=== PATIENT | female | born 1990 | race Hispanic/Latino ===

== ENCOUNTER 2017-10-16 15:45 | Emergency (ER) | payer SELFPAY ==
[2017-10-16] MEDS ORDERED: LIDOCAINE 1% W/EPI 1:100,000 MDV 50 ML VIAL ONE (17:14)
[2017-10-16] MEDS ORDERED: HYDROCODONE/APAP 10/325 TAB ONE (17:14)
--- NOTE | 2017-10-16 17:38 | RAD REPORT ---
EXAM DESCRIPTION: RAD - Tib Fib Left - 10/16/2017 5:11 pm CLINICAL HISTORY: Dog bite, soft tissue wound COMPARISON: None. FINDINGS: No fracture is identified. There is no dislocation or periosteal reaction noted. No acute or suspicious bony finding. No foreign body. Abnormal air densities are present in the soft tissues primarily along the lateral a spect of the calf. IMPRESSION: Soft tissue infection changes evident lateral left leg. No bony abnormality.
[2017-10-16] MEDS ORDERED: TETANUS & DIPHTHERIA TOX,ADULT 0.5 ML VIAL ONE (17:46)
--- NOTE | 2017-10-16 18:01 | ER ---
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 [place] Police have not yet been notified. Transition of care: patient was not received from another setting of care. Onset of symptoms was October 16, 2017. Risk Assessment: Do you want to hurt yourself or someone else? Patient reports no desire to harm self or others. Initial Sepsis Screen: Does the patient meet any 2 criteria? No. Patient's initial sepsis screen is negative. Does the patient have a suspected source of infection? No. Patient's initial sepsis screen is negative. Care prior to arrival: None. 16:05 Method Of Arrival: Ambulatory hb 16:05 Acuity: JUN 3 hb Triage Assessment: 16:10 Bite description: bite sustained to left leg by a dog, animal information: hb vaccination(s) is unknown. 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 - Social history:: Smoking status: Patient uses tobacco products, smokes one-half pack cigarettes per day. - Ebola Screening: : No symptoms or risks identified at this time. - Family history:: not pertinent. - Hospitalizations: : No recent hospitalization is reported. - History obtained from: relative. Screenin:08 Abuse screen: Denies threats or abuse. Denies injuries from another. Nutritional hb screening: No deficits noted. Tuberculosis screening: No symptoms or risk factors identified. Fall Risk None identified. Assessment: 16:05 General: Appears in no apparent distress. uncomfortable, Behavior is calm, cooperative. hb Pain: Pain currently is 8 out of 10 on a pain scale. Neuro: Level of Consciousness is awake, alert, obeys commands, Oriented to person, place, time, situation. Cardiovascular: Capillary refill < 3 seconds Patient's skin is warm and dry. Respiratory: Airway is patent Trachea midline Respiratory effort is even, unlabored, Respiratory pattern is regular, symmetrical. Derm: Skin is healthy with good turgor, Skin is pink, warm \T\ dry. Injury Description: Bite sustained to left godfrey and left calf and lateral aspect of left calf caused by a dog, is full thickness, from animal, was sustained less than 30 minutes ago. 16:17 Reassessment: Report called to Lisa at [place] [employer]. hb 17:00 Reassessment: Patient appears in no apparent distress at this time. No changes from hb previously documented assessment. Patient and/or family updated on plan of care and expected duration. Pain level reassessed. Patient is alert, oriented x 3, equal unlabored respirations, skin warm/dry/pink. 18:00 Reassessment: Patient appears in no apparent distress at this time. No changes from hb previously documented assessment. Patient and/or family updated on plan of care and expected duration. Pain level reassessed. Patient is alert, oriented x 3, equal unlabored respirations, skin warm/dry/pink. Vital Signs: 16:06 BP 122 / 74; Pulse 88; Resp 16; Temp 98; Pulse Ox 100% on R/A; Pain 8/10; hb ED Course: 15:48 Patient arrived in ED. mr 15:48 None, None is Private Physician. mr 16:05 Mendy Ortega, RN is Primary Nurse. hb 16:06 Triage completed. hb 16:08 [facility]lin Gamez [facility]NP [facility]. kav 16:08 Flako Mera MD is Attending Physician. kav 16:08 Arm band placed on right wrist. hb 16:09 Patient has correct armband on for positive identification. Bed in low position. Call hb light in reach. Side rails up X 1. 17:09 X-ray completed. Portable x-ray completed in exam room. Patient tolerated procedure bb2 well. 17:10 Tib Fib Left XRAY In Process Unspecified. EDMS 18:26 No provider procedures requiring assistance completed. Patient did not have IV access hb during this emergency room visit. Administered Medications: 16:05 Drug: Tetanus-Diphtheria Toxoid Adult 0.5 ml {Sales Exec: [employer]. Exp: hb 11/21/2019. Lot #: [id number]. } Route: IM; Site: right deltoid; 16:20 Follow up: Response: No adverse reaction hb 17:22 Drug: [place] 10 mg-325 mg 1 tabs Route: PO; hb 18:06 Follow up: Response: No adverse reaction; Pain is decreased hb 17:30 Drug: Lidocaine-Epinephrine -1%: (1:100,000) 20 ml {Note: by COMPLIANCE VICE PRESIDENT Franco.} Volume: 20 ml; hb Route: Infiltration; 18:06 Follow up: Response: No adverse reaction; Pain is decreased hb 18:05 Drug: Bactrim (160 mg-800 mg (DS) 1 tablet Route: PO; hb 18:07 Follow up: Response: Medication administered at discharge. hb Outcome: 18:00 Discharge ordered by . luis 18:26 Discharged to home ambulatory, with family. hb 18:26 Condition: stable 18:26 Discharge instructions given to patient, family, Instructed on discharge instructions, follow up and referral plans. medication usage, wound care, Demonstrated understanding of instructions, follow-up care, medications, wound care, Prescriptions given X 3. 18:26 Patient left the ED. 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 hb
--- NOTE | 2017-10-16 18:01 | EDPHYS ---
Physician Documentation [facility] Name: Amrita Saenz Age: 27 yrs Sex: Female : 1990 Arrival Date: 10/16/2017 Time: 15:48 Bed 20 Private MD: None, None ED Physician Flako Mera HPI: 10/16 16:09 This 27 yrs old Female presents to ER via Ambulatory with complaints of Dog kav Bite. 17:52 The patient was bitten on the lateral aspect of left calf, left calf and left godfrey, by kav a dog, in an unprovoked manner, at home. Onset: The symptoms/episode began/occurred acutely, just prior to arrival. Animal information: Animal control has been notified, [place] PD notified. Secondary to the bite the patient reports multiple lacerations, that are superficial, that are deep, with the longest being 4 cm(s). Associated signs and symptoms: Pertinent positives: pain at site, swelling at site, Pertinent negatives: bony tenderness, fever, motor deficit, numbness distal to wound, suspected foreign body, tenderness. Severity of symptoms: At their worst the symptoms were severe, just prior to arrival. The patient has not experienced similar symptoms in the past. The patient has not recently seen a physician. 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 - Social history:: Smoking status: Patient uses tobacco products, smokes one-half pack cigarettes per day. - Ebola Screening: : No symptoms or risks identified at this time. - Family history:: not pertinent. - Hospitalizations: : No recent hospitalization is reported. - History obtained from: relative. ROS: 17:52 Constitutional: Negative for fever, chills, and weight loss, Eyes: Negative for injury, kav pain, redness, and discharge, ENT: Negative for injury, pain, and discharge, Neck: Negative for injury, pain, and swelling, Cardiovascular: Negative for chest pain, palpitations, and edema, Respiratory: Negative for shortness of breath, cough, wheezing, and pleuritic chest pain, Abdomen/GI: Negative for abdominal pain, nausea, vomiting, diarrhea, and constipation, Back: Negative for injury and pain, : Negative for injury, bleeding, discharge, and swelling, MS/Extremity: Negative for injury and deformity, Neuro: Negative for headache, weakness, numbness, tingling, and seizure, Psych: Negative for depression, anxiety, suicide ideation, homicidal ideation, and hallucinations, Allergy/Immunology: Negative for hives, rash, and allergies, Endocrine: Negative for neck swelling, polydipsia, polyuria, polyphagia, and marked weight changes, Hematologic/Lymphatic: Negative for swollen nodes, abnormal bleeding, and unusual bruising. 17:52 Skin: Positive for laceration(s), of the left godfrey and left calf and lateral aspect of left calf. Exam: 17:52 Constitutional: This is a well developed, well nourished patient who is awake, alert, kav and in no acute distress. Head/Face: Normocephalic, atraumatic. Eyes: Pupils equal round and reactive to light, extra-ocular motions intact. Lids and lashes normal. Conjunctiva and sclera are non-icteric and not injected. Cornea within normal limits. Periorbital areas with no swelling, redness, or edema. ENT: Nares patent. No nasal discharge, no septal abnormalities noted. Tympanic membranes are normal and external auditory canals are clear. Oropharynx with no redness, swelling, or masses, exudates, or evidence of obstruction, uvula midline. Mucous membranes moist. Neck: Trachea midline, no thyromegaly or masses palpated, and no cervical lymphadenopathy. Supple, full range of motion without nuchal rigidity, or vertebral point tenderness. No Meningismus. Chest/axilla: Normal chest wall appearance and motion. Nontender with no deformity. No lesions are appreciated. Cardiovascular: Regular rate and rhythm with a normal S1 and S2. No gallops, murmurs, or rubs. Normal PMI, no JVD. No pulse deficits. Respiratory: Lungs have equal breath sounds bilaterally, clear to auscultation and percussion. No rales, rhonchi or wheezes noted. No increased work of breathing, no retractions or nasal flaring. Abdomen/GI: Soft, non-tender, with normal bowel sounds. No distension or tympany. No guarding or rebound. No evidence of tenderness throughout. Back: No spinal tenderness. No costovertebral tenderness. Full range of motion. MS/ Extremity: Pulses equal, no cyanosis. Neurovascular intact. Full, normal range of motion. Neuro: Awake and alert, GCS 15, oriented to person, place, time, and situation. Cranial nerves II-XII grossly intact. Motor strength 5/5 in all extremities. Sensory grossly intact. Cerebellar exam normal. Normal gait. Psych: Awake, alert, with orientation to person, place and time. Behavior, mood, and affect are within normal limits. 17:52 Skin: injury, laceration(s), the wound is approximately 4 cm(s), with a depth of 2 cm(s), of the left godfrey, the second wound is approximately 1 cm(s), with a depth of 1 cm(s), of the left calf, the third wound is approximately 3 cm(s), with a depth of 1 cm(s), of the lateral aspect of left calf. Vital Signs: 16:06 BP 122 / 74; Pulse 88; Resp 16; Temp 98; Pulse Ox 100% on R/A; Pain 8/10; hb Laceration: 17:52 Wound Repair of 4cm ( 1.6in ) subcutaneous laceration to left godfrey and left calf and kav lateral aspect of left calf. Irregularly shaped.. Minimal contamination.. Distal neuro/vascular/tendon intact. Anesthesia: Local anesthetic administered with 8 mls of 1% lidocaine w/ Epi. Wound prep: Extensive cleansing with betadine by ak, Wound irrigation with saline by ak, Wound margin revised moderately, Wound explored moderately. Skin closed with 12 1-0 Vicryl using interrupted sutures. Dressed with Kerlix, non-adherent dressing. Patient tolerated well. MDM: 16:08 Medical screening is not applicable. [facility] 17:52 Data reviewed: vital signs, nurses notes, radiologic studies, plain films. [facility] 10/16 18:07 Order name: Urine Dipstick--Ancillary (enter results) 10/16 18:07 Order name: Urine --Ancillary (enter results) 10/16 17:02 Order name: Tib Fib Left XRAY; Complete Time: 18:03 [facility] 10/16 18:03 Interpretation: No acute disease except. [facility] 10/16 18:07 Order name: Urine Dipstick-Ancillary [facility] 10/16 18:07 Order name: Urine --Ancillary [facility] 10/16 17:01 Order name: Prolene, Sutures; Complete Time: 17:22 [facility] 10/16 17:01 Order name: Vicryl, Sutures; Complete Time: 17:22 [facility] 10/16 17:01 Order name: Dressing - Wound; Complete Time: 17:22 [facility] 10/16 17:01 Order name: Gloves, Sterile; Complete Time: 17:22 [facility] 10/16 17:01 Order name: Setup Suture Tray; Complete Time: 17:22 [facility] 10/16 17:02 Order name: Urine Dipstick-Ancillary (obtain specimen); Complete Time: 18:06 [facility] 10/16 17:02 Order name: Urine Test (obtain specimen); Complete Time: 18:06 kav Administered Medications: 16:05 Drug: Tetanus-Diphtheria Toxoid Adult 0.5 ml {Reinsurance Analyst: [employer]. Exp: 11/21/2019. Lot #: [id number]. } Route: IM; Site: right deltoid; 16:20 Follow up: Response: No adverse reaction hb 17:22 Drug: [place] 10 mg-325 mg 1 tabs Route: PO; hb 18:06 Follow up: Response: No adverse reaction; Pain is decreased hb 17:30 Drug: Lidocaine-Epinephrine -1%: (1:100,000) 20 ml {Note: by BUTADIENE CONVERTER OPERATOR Franco.} Volume: 20 ml; hb Route: Infiltration; 18:06 Follow up: Response: No adverse reaction; Pain is decreased hb 18:05 Drug: Bactrim (160 mg-800 mg (DS) 1 tablet Route: PO; hb 18:07 Follow up: Response: Medication administered at discharge. hb Disposition: 10/16/17 18:00 Discharged to Home. Impression: Bitten by dog, Laceration Lower Extremity x 3 , Urinary tract infection, site not specified. - Condition is Stable. - Discharge Instructions: Animal Bite, [id number], Urinary Tract Infection, Cbio-za-Nkye, Laceration Care, Adult, [id number], Antibiotic Use, Gfze-yt-Marm. - Prescriptions for Ibuprofen 800 mg Oral Tablet - take 1 tablet by ORAL route every 8 hours As needed take with food; 30 tablet. Tylenol- Codeine #3 300-30 mg Oral Tablet - take 2 tablet by ORAL route every 6 hours As needed; 30 tablet. Bactrim DS 800- 160 mg Oral Tablet - take 1 tablet by ORAL route every 12 hours for 10 days; 20 tablet. - Work release form, Medication Reconciliation Form, Thank You Letter, Antibiotic Education, Prescription Opioid Use form. - Follow up: Private Physician; When: 7 - 10 days; Reason: Recheck today's complaints, Continuance of care, Staple/Suture removal, Re-evaluation by your physician. - Problem is new. - Symptoms have improved. Addendum: 10/23/2017 11:27 Co-signature as Attending Physician, Flako Mera MD I agree with the assessment and k dr plan of care. Signatures: Dispatcher [employer] EDNM Flako Mera MD MD kdr Vern, Katherine, INSURANCE SERVICE REPRESENTATIVE INSURANCE SERVICE REPRESENTATIVE Mendy Hardy, RN RN hb Corrections: (The following items were deleted from the chart) 10/16 18:26 18:00 10/16/2017 18:00 Discharged to Home. Impression: Bitten by dog; Laceration Lower hb Extremity x 3 ; Urinary tract infection, site not specified. Condition is Stable. Forms are Medication Reconciliation Form, Thank You Letter, Antibiotic Education, Prescription Opioid Use. Follow up: Private Physician; When: 7 - 10 days; Reason: Recheck today's complaints, Continuance of care, Staple/Suture removal, Re-evaluation by your physician. Problem is new. Symptoms have improved. luis
[2017-10-16] MEDS ORDERED: SMZ./TMP. 800/160 MG TABLET ONE (18:05)
[2017-10-16 20:37] LABS: Urine Blood NEGATIVE (NEG); Urine Glucose NEGATIVE (NEG); Urine Protein NEGATIVE (NEG); Urine pH 6.5 (5.0-7.0)
== END 2017-10-16 18:26 | disposition home or self-care (01) ==
LOC: ER 15:45
PROC: 0JQP0ZZ Repair Left Lower Leg Subcutaneous Tissue and Fascia, Open Approach (ICD-10-PCS; principal; 2017-10-16)
DX: S81.852A Open bite, left lower leg, initial encounter (principal); W54.0XXA Bitten by dog, initial encounter; Y93.9 Activity, unspecified; Y92.019 Unspecified place in single-family (private) house as the place of occurrence of the external cause; F17.210 Nicotine dependence, cigarettes, uncomplicated; S81.812A Laceration without foreign body, left lower leg, initial encounter; Z23 Encounter for immunization; N39.0 Urinary tract infection, site not specified
CPT/HCPCS: 81003; 81025; 90714; 99283

== ENCOUNTER 2017-10-28 12:11 | Emergency (ER) | payer SELFPAY ==
--- NOTE | 2017-10-28 12:52 | EDPHYS ---
Physician Documentation [facility] Name: Amrita Saenz Age: 27 yrs Sex: Female : 1990 Arrival Date: 10/28/2017 Time: 12:13 Bed 23 Private MD: None, None ED Physician Neri Handley HPI: 10/28 12:20 This 27 yrs old Female presents to ER via Ambulatory with complaints of Suture cp Removal. 12:20 The patient has sutures on the left lower leg. Previous treatment: The patient was cp initially treated on October 16, 2017, the care was rendered at [facility], Treatment type: The patient's original treatment included sutures. Sutures/katey progress: The patient has no c/o's. The wound is well-healing with no redness, swelling, discharge, or dehiscence reported. 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 - Social history:: Smoking status: Patient uses tobacco products, smokes one-half pack cigarettes per day. - Ebola Screening: : Patient negative for fever greater than or equal to 101.5 degrees Fahrenheit, and additional compatible Ebola Virus Disease symptoms Patient denies exposure to infectious person Patient denies travel to an Ebola-affected area in the 21 days before illness onset No symptoms or risks identified at this time. ROS: 12:21 Skin: Positive for of the left lower leg, sutures. cp 12:21 All other systems are negative. Exam: 12:40 Head/Face: Normocephalic, atraumatic. cp 12:40 Constitutional: The patient appears in no acute distress, alert, awake, non-toxic, well developed, well nourished. 12:40 Eyes: Periorbital structures: appear normal, Conjunctiva: normal, no exudate, no injection, Lids and lashes: appear normal, bilaterally. 12:40 ENT: External ear(s): are unremarkable, Nose: is normal, Mouth: is normal, Posterior pharynx: is normal, airway is patent. 12:40 Chest/axilla: Inspection: normal. 12:40 Cardiovascular: Rate: normal. 12:40 Respiratory: the patient does not display signs of respiratory distress, Respirations: normal, no use of accessory muscles, no retractions, no splinting, no tachypnea, labored breathing, is not present. 12:40 Abdomen/GI: Exam negative for discomfort, distension, guarding, Inspection: abdomen appears normal. 12:40 Skin: Wound recheck: Suture laceration closure: the wound is healing well, the edges are well approximated, no evidence of dehiscence, no drainage, no erythema, no swelling, repaired lacerations of left lower leg. [address] Vital Signs: 12:20 BP 97 / 61; Pulse 85; Resp 16; Temp 98.4; Pulse Ox 98% on R/A; Weight 49.9 kg; Height 5 aj ft. 6 in. (167.64 cm); 12:20 Body Mass Index 17.75 (49.90 kg, 167.64 cm) aj Procedures: 12:40 Suture/Staple removal: Removed 12 sutures, from left lower leg, site appears well cp healed, dressed with steri strips. Patient tolerated well. MDM: 12:19 Patient medically screened. cp 12:50 Data reviewed: vital signs, nurses notes, and as a result, I will discharge patient. cp 12:50 Counseling: I had a detailed discussion with the patient and/or guardian regarding: the cp historical points, exam findings, and any diagnostic results supporting the discharge/admit diagnosis, to return to the emergency department if symptoms worsen or persist or if there are any questions or concerns that arise at home. Administered Medications: No medications were administered Disposition: 13:00 Chart complete. cp 13:04 Co-signature as Attending Physician, Neri Handley MD. rn Disposition: 10/28/17 12:52 Discharged to Home. Impression: Encounter for removal of sutures. - Condition is Stable. - Discharge Instructions: Wound Closure Removal. - Medication Reconciliation Form, Thank You Letter, Antibiotic Education, Prescription Opioid Use form. - Follow up: Private Physician; When: As needed; Reason: Worsening of condition. - Problem is new. - Symptoms have improved. Signatures: Vivian Her RN RN aj Nieto, Roman, MD MD rn Page, Corey, PA PA cp Garcia, Sil, RN RN kr2 Corrections: (The following items were deleted from the chart) 12:59 12:52 10/28/2017 12:52 Discharged to Home. Impression: Encounter for removal of kr2 sutures. Condition is Stable. Forms are Medication Reconciliation Form, Thank You Letter, Antibiotic Education, Prescription Opioid Use. Follow up: Private Physician; When: As needed; Reason: Worsening of condition. Problem is new. Symptoms have improved. cp
--- NOTE | 2017-10-28 12:52 | ER ---
Nurse's Notes [facility] Name: Amrita Saenz Age: 27 yrs Sex: Female : 1990 Arrival Date: 10/28/2017 Time: 12:13 Bed 23 Private MD: None, None Diagnosis: Encounter for removal of sutures Presentation: 10/28 12:19 Presenting complaint: Patient states: Here for suture removal. Patient seen here 11 aj days ago, sutures placed in right godfrey. Transition of care: patient was not received from another setting of care. Onset of symptoms was October 18, 2017. Risk Assessment: Do you want to hurt yourself or someone else? Patient reports no desire to harm self or others. Initial Sepsis Screen: Does the patient meet any 2 criteria? No. Patient's initial sepsis screen is negative. Does the patient have a suspected source of infection? No. Patient's initial sepsis screen is negative. Care prior to arrival: None. 12:19 Method Of Arrival: Ambulatory aj 12:19 Acuity: JUN 5 aj Triage Assessment: 12:20 General: Appears in no apparent distress. comfortable, Behavior is cooperative, aj appropriate for age, anxious. Pain: Denies pain. Neuro: Level of Consciousness is awake, alert, obeys commands, Oriented to person, place, time, situation, Appropriate for age. Respiratory: Airway is patent Respiratory effort is even, unlabored, Respiratory pattern is regular, symmetrical. Derm: Skin is intact, is healthy with good turgor, Skin is pink, warm \T\ dry. normal, Wound noted right godfrey Wound is wound is closed with sutures in place. No redness, inflammation, or drainage. 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 - Social history:: Smoking status: Patient uses tobacco products, smokes one-half pack cigarettes per day. - Ebola Screening: : Patient negative for fever greater than or equal to 101.5 degrees Fahrenheit, and additional compatible Ebola Virus Disease symptoms Patient denies exposure to infectious person Patient denies travel to an Ebola-affected area in the 21 days before illness onset No symptoms or risks identified at this time. Screenin:22 Abuse screen: Denies threats or abuse. Denies injuries from another. Nutritional ss screening: No deficits noted. Tuberculosis screening: Never had TB. Fall Risk None identified. Assessment: 12:23 General: Appears in no apparent distress. comfortable, Behavior is calm, cooperative. ss Pain: Denies pain. Neuro: Level of Consciousness is awake, alert, obeys commands, Oriented to person, place, time, situation. Respiratory: Airway is patent Respiratory effort is even, unlabored, Respiratory pattern is regular, symmetrical. EENT: Oral mucosa is moist. Derm: Skin is intact, is healthy with good turgor, Skin is dry, Skin is pink, warm \T\ dry. normal. Derm: healing laceration to L lower leg. No redness, drainage or swelling noted. Musculoskeletal: Circulation, motion, and sensation intact. Range of motion: intact in all extremities, Swelling absent. Vital Signs: 12:20 BP 97 / 61; Pulse 85; Resp 16; Temp 98.4; Pulse Ox 98% on R/A; Weight 49.9 kg; Height 5 aj ft. 6 in. (167.64 cm); 12:20 Body Mass Index 17.75 (49.90 kg, 167.64 cm) ED Course: 12:13 Patient arrived in ED. sb2 12:14 None, None is Private Physician. sb2 12:18 Jey Dave PA is PHCP. cp 12:18 Neri Handley MD is Attending Physician. cp 12:19 Triage completed. aj 12:20 Arm band placed on left wrist. Patient placed in an exam room. aj 12:22 Pastora Lua, RED is Primary Nurse. ss 12:22 Patient has correct armband on for positive identification. Call light in reach. ss 12:58 No provider procedures requiring assistance completed. Patient did not have IV access kr2 during this emergency room visit. Administered Medications: No medications were administered Outcome: 12:52 Discharge ordered by MD. cp 12:59 Discharged to home ambulatory, with family. kr2 12:59 Condition: good 12:59 Discharge instructions given to patient, family, Instructed on discharge instructions, follow up and referral plans. Demonstrated understanding of instructions, follow-up care. 12:59 Patient left the ED. kr2 Signatures: Vivian Her RN RN Pastora Rosales, RN RN ss Jey Dave PA PA cp Reaves, Karey RN RN kr2 Vonda Madrid sb2
== END 2017-10-28 12:59 | disposition home or self-care (01) ==
LOC: ER 12:11
DX: Z48.02 Encounter for removal of sutures (principal); F17.210 Nicotine dependence, cigarettes, uncomplicated
CPT/HCPCS: 99281

== ENCOUNTER 2019-02-03 20:54 | Emergency (ER) | payer SELFPAY ==
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
[2019-02-03 22:58] VITALS: TEMP 97.4; O2SAT 100
[2019-02-03 22:59] VITALS: BP 93/69
--- NOTE | 2019-02-04 06:41 | RAD REPORT ---
EXAM DESCRIPTION: RAD - Hand Right 3 View - 02/03/2019 9:38 pm CLINICAL HISTORY: Right hand pain, trauma, pain to fifth digit primarily COMPARISON: None. FINDINGS: No fracture is identified. There is no dislocation or periosteal reaction noted. No forei gn body or other soft tissue abnormality. IMPRESSION: Negative right hand examination. Repeat imaging in 5-7 days could be performed there ar e continued symptoms concerning for occult bony injury.
== END 2019-02-03 22:14 | disposition home or self-care (01) ==
LOC: ER 20:54
DX: M79.641 Pain in right hand (principal); W22.8XXA Striking against or struck by other objects, initial encounter; Y93.9 Activity, unspecified; Y92.9 Unspecified place or not applicable; F17.210 Nicotine dependence, cigarettes, uncomplicated
CPT/HCPCS: 99283

== ENCOUNTER 2019-08-06 15:26 | Emergency (ER) | payer SELFPAY ==
[2019-08-06 16:24] LABS: Absolute Lymphocytes (CBC) 1.5 K/uL (0.7-4.9); Basophils % 0.9 % (0-1.3); Hematocrit 39.9 % (36.0-45.0); Lymphocytes % 27.7 % (15.3-44.8); MPV 9.8 fL (7.6-11.3); RBC Red Blood Cell Count 4.08 M/uL (3.86-4.86)
[2019-08-06 16:33] LABS: Albumin 3.5 g/dL (3.4-5.0); Bilirubin Direct 1.7 mg/dL (0-0.2); Bilirubin Total 2.7 mg/dL (0.2-1.0); Potassium 3.4 mmol/L (3.5-5.1); Protein, Total 7.2 g/dL (6.4-8.2)
[2019-08-06] MEDS ORDERED: NA CHLORIDE 0.9% 1,000 ML ONE ×2 (16:33→18:12)
[2019-08-06] MEDS ORDERED: ONDANSETRON 4 MG/2 ML VIAL ONE (16:33)
[2019-08-06] MEDS ORDERED: FAMOTIDINE 20 MG/2 ML VIAL IV ONE (16:33)
--- NOTE | 2019-08-06 16:38 | RAD REPORT ---
EXAM DESCRIPTION: US - Abdomen Exam Limited - 08/06/2019 4:30 pm CLINICAL HISTORY: Abdominal pain. COMPARISON: None. FINDINGS: Gallstones. Gallbladder wall is mildly thickened. Common bile duct measures approximately 6 millimeters IMPRESSION: Cholelithiasis. Mild gallbladder wall thickening may indicate cholecystitis Borderline dilatation of the common bile duct
[2019-08-06 16:40] LABS: Urine Blood NEGATIVE (NEG); Urine Glucose TRACE (NEG); Urine Protein TRACE (NEG)
[2019-08-06] MEDS ORDERED: CEFTRIAXONE/SWI 1gm 1 GM/10 ML SYR ONE (17:01)
--- NOTE | 2019-08-06 18:00 | EDPHYS ---
Physician Documentation [facility] Name: Amrita Saenz Age: 28 yrs Sex: Female : 1990 Arrival Date: 08/06/2019 Time: 15:27 Bed 15 Private MD: ED Physician Flako Mera HPI: 08/05 15:48 This 28 yrs old Female presents to ER via Ambulatory with complaints of cp Abdominal Pain, Constipation, Nausea, Diarrhea. 15:48 The patient presents with abdominal pain in the epigastric area. Onset: The cp symptoms/episode began/occurred 1 week(s) ago. The symptoms do not radiate. Associated signs and symptoms: Pertinent positives: vomiting after eating and intermittent constipation and diarrhea. 15:48 The symptoms are described as constant. 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 - Social history:: Smoking status: Patient reports the use of cigarette tobacco products, denies chronic smoking, but will smoke occasionally, Patient uses alcohol, occasionally. street drugs, marijuana. ROS: 15:50 Eyes: Negative for injury, pain, redness, and discharge. cp 15:50 Constitutional: Negative for body aches, chills, fever, poor PO intake. 15:50 ENT: Negative for drainage from ear(s), ear pain, sore throat, difficulty swallowing, difficulty handling secretions. 15:50 Cardiovascular: Negative for chest pain, palpitations. 15:50 Respiratory: Negative for cough, shortness of breath, wheezing. 15:50 Abdomen/GI: Positive for abdominal pain, vomiting, diarrhea, constipation, Negative for hematemesis, black/tarry stool, rectal bleeding. 15:50 Back: Positive for pain at rest, of the low back area. 15:50 Neuro: Negative for altered mental status, headache, weakness. 15:50 All other systems are negative. Exam: 15:57 Head/Face: Normocephalic, atraumatic. cp 15:57 Constitutional: The patient appears in no acute distress, alert, awake, comfortable, non-toxic, well developed, well nourished. 15:57 Eyes: Periorbital structures: appear normal, Conjunctiva: normal, no exudate, no injection, Sclera: no appreciated abnormality, Lids and lashes: appear normal, bilaterally. 15:57 ENT: External ear(s): are unremarkable, Nose: is normal, Mouth: is normal, Posterior pharynx: is normal, airway is patent. 15:57 Chest/axilla: Inspection: normal. 15:57 Cardiovascular: Rate: normal, Rhythm: regular. 15:57 Respiratory: the patient does not display signs of respiratory distress, Respirations: normal, no use of accessory muscles, no retractions, labored breathing, is not present. 15:57 Abdomen/GI: Inspection: abdomen appears normal, Bowel sounds: active, all quadrants, Palpation: soft, in all quadrants, mild abdominal tenderness, in the epigastric area, rebound tenderness, is not appreciated, voluntary guarding, is not appreciated, involuntary guarding, is not appreciated. 15:57 Back: pain, that is mild, of the low back area, ROM is normal. Vital Signs: 15:31 BP 100 / 72; Pulse 95; Resp 18 S; Temp 98.2(O); Pulse Ox 100% on R/A; Weight 68.04 kg ca1 (R); Height 5 ft. 6 in. (167.64 cm) (R); Pain 8/10; 17:19 BP 93 / 73; Pulse 59; Resp 16; Pulse Ox 100% on R/A; em 18:00 BP 95 / 68; Pulse 67; Resp 18; Pulse Ox 100% on R/A; Pain 0/10; em 15:31 Body Mass Index 24.21 (68.04 kg, 167.64 cm) ca1 MDM: 15:52 Patient medically screened. cp 16:00 Differential diagnosis: bowel obstruction, cholecystitis, Cholelithiasis, pancreatitis, cp Peptic Ulcer Disease, Perf. Duodenal Ulcer, Perf. Gastric Ulcer, Ureterolithiasis, urinary tract infection, choledocholithiasis. 17:00 Data reviewed: vital signs, nurses notes, lab test result(s), I have discussed the cp patient's presentation/case with the attending Emergency Department Physician;. 17:00 Physician consultation: True Stone MD was called at 17:02, was contacted at 17:02, cp regarding consult, patient's condition, requests transfer due to inability for ERCP and/or MRCP . 17:41 Physician consultation: was contacted at 17:41, regarding consult, patient's condition, cp DR Sesay, GI physician \\[facility], will consult on patient. 17:55 Physician consultation: was contacted at 17:56, regarding regarding transfer, to [facility]. patient's condition, DR Regan, hospitalist, will accept patient for transfer. 08/05 15:50 Order name: Basic Metabolic Panel; Complete Time: 16:40 08/05 16:40 Interpretation: Normal except: K 3.4; GLUC 159; GFR 82. 08/05 15:50 Order name: CBC with Diff; Complete Time: 16:40 08/05 16:46 Interpretation: Reviewed. 08/05 15:50 Order name: Creatinine for Radiology; Complete Time: 16:40 08/05 15:50 Order name: Hepatic Function; Complete Time: 16:40 08/05 16:46 Interpretation: Normal except: AST 187; ALT 341; ALK 290; BILIT 2.7; BILID 1.7; GLOB cp 3.7; A/G 0.9. 08/05 15:50 Order name: Lipase; Complete Time: 16:40 08/05 15:52 Order name: Urine Dipstick--Ancillary (enter results); Complete Time: 16:45 08/05 16:46 Interpretation: Normal except: UKET 2+; UESTR TRACE. 08/05 15:50 Order name: US Abdomen Limited; Complete Time: 16:40 08/05 16:46 Interpretation: Report reviewed. 08/05 15:52 Order name: Urine --Ancillary (enter results); Complete Time: 16:45 08/05 15:50 Order name: IV Saline Lock; Complete Time: 16:05 08/05 15:50 Order name: Labs collected and sent; Complete Time: 16:05 08/05 15:50 Order name: NPO; Complete Time: 16:23 08/05 15:50 Order name: Urine Dipstick-Ancillary (obtain specimen); Complete Time: 16:05 08/05 15:50 Order name: Urine Test (obtain specimen); Complete Time: 16:05 cp Administered Medications: 16:34 Drug: Zofran (Ondansetron) 4 mg Route: IVP; Site: right antecubital; em 17:05 Follow up: Response: No adverse reaction; Marked relief of symptoms; Nausea is decreasedem 16:34 Drug: Pepcid 20 mg Route: IVP; Site: right antecubital; em 17:05 Follow up: Response: No adverse reaction; Marked relief of symptoms; Pain is decreased em 16:34 Drug: NS 0.9% 1000 ml Route: IV; Rate: 1 bolus; Site: right antecubital; em 18:17 Follow up: IV Status: Completed infusion; IV Intake: 1000ml em 17:04 Drug: Rocephin 1 grams Route: IV; Rate: calculated rate; Site: right antecubital; em 18:17 Follow up: Response: No adverse reaction; IV Status: Completed infusion; IV Intake: 10mlem 18:14 Drug: NS 0.9% 1000 ml Route: IV; Rate: 1 bolus; Site: right antecubital; em 19:12 Follow up: IV Status: Infusion continued upon transfer; IV Intake: 500ml mg2 18:38 Drug: Potassium Chloride 10 mEq Route: IV; Rate: calculated rate; Site: right em antecubital; 19:13 Follow up: IV Status: Infusion continued upon transfer; IV Intake: 47ml mg2 Disposition: 08/06/19 17:59 Transfer ordered to [facility]. Diagnosis are Cholecystitis - with dilated common bile duct, Abnormal results of liver function studies. - Reason for transfer: Higher level of care. - Accepting physician is DR Regan. - Condition is Stable. - Problem is new. - Symptoms have improved. Signatures: Dispatcher [employer] Neville Gilman RN RN em Jey Dave PA PA cp Heladio Beltrán RN RN mg2 Lori Colon RN RN ca1 Corrections: (The following items were deleted from the chart) 17:58 17:41 Physician consultation: was contacted at 17:41, regarding consult, patient's cp condition, DR No, GI physician \T\[facility], will consult on patient, cp 19:16 17:59 08/06/2019 17:59 Transfer ordered to [facility]. mg2 Diagnosis is Cholecystitis - with dilated common bile duct; Abnormal results of liver function studies. Reason for transfer: Higher level of care. Accepting physician is DR Regan. Condition is Stable. Problem is new. Symptoms have improved. cp
--- NOTE | 2019-08-06 18:00 | ER ---
Nurse's Notes [facility] Name: Amrita Saenz Age: 28 yrs Sex: Female : 1990 Arrival Date: 08/06/2019 Time: 15:27 Bed 15 Private MD: Diagnosis: Cholecystitis-with dilated common bile duct;Abnormal results of liver function studies Presentation: 08/05 15:31 Chief complaint: Patient states: Abdominal pain and vomiting x 1 week. Alternating ca1 diarrhea and constipation x 1 week. Yellowing of sclerae x 2 days. Coronavirus screen: Proceed with normal triage. Patient denies a cough. Patient denies shortness of breath or difficulty breathing. Patient denies measured and/or subjective temperature greater than 100.4F prior to today's visit. Patient denies travel on a cruise ship or to a country the [facility] currently lists as an affected area. Patient denies contact with known and/or suspected case of COVID-19. Ebola Screen: Patient negative for fever greater than or equal to 101.5 degrees Fahrenheit, and additional compatible Ebola Virus Disease symptoms Patient denies exposure to infectious person. Patient denies travel to an Ebola-affected area in the 21 days before illness onset. No symptoms or risks identified at this time. Initial Sepsis Screen: Does the patient meet any 2 criteria? No. Patient's initial sepsis screen is negative. Does the patient have a suspected source of infection? No. Patient's initial sepsis screen is negative. Risk Assessment: Do you want to hurt yourself or someone else? Patient reports no desire to harm self or others. Onset of symptoms was August 06, 2019. 15:31 Method Of Arrival: Ambulatory ca1 15:31 Acuity: JUN 3 ca1 RECEPTION CLERK: 15:36 [facility] 07/05/2019 ca1 Historical: - Allergies: 15:36 No Known Allergies; ca1 - Home Meds: 15:36 None [Active]; ca1 - PMHx: 15:36 None; ca1 - PSHx: 15:36 None; ca1 - Immunization history:: Adult Immunizations up to date, Flu vaccine is not up to date. - Social history:: Smoking status: Patient reports the use of cigarette tobacco products, denies chronic smoking, but will smoke occasionally, Patient uses alcohol, occasionally. street drugs, marijuana. Screenin:26 Abuse screen: Denies threats or abuse. Nutritional screening: No deficits noted. em Tuberculosis screening: No symptoms or risk factors identified. Fall Risk None identified. Assessment: 16:10 General: Appears in no apparent distress. uncomfortable, ill, Behavior is calm, em cooperative, appropriate for age, Denies fever. Pain: Complains of pain in epigastric area Pain currently is 8 out of 10 on a pain scale. Neuro: Level of Consciousness is awake, alert, obeys commands, Oriented to person, place, time, situation, Appropriate for age. Cardiovascular: Capillary refill < 3 seconds Patient's skin is warm and dry. Respiratory: Airway is patent Respiratory effort is even, unlabored, Respiratory pattern is regular, symmetrical. GI: Abdomen is flat, Bowel sounds present X 4 quads. Abd is soft X 4 quads Abdomen is tender to palpation X 4 quads. Reports constipation, diarrhea, intolerance of fluids, intolerance of food, nausea, vomiting. : Denies burning with urination. Derm: Skin is intact, is healthy with good turgor, Skin is pink, warm \T\ dry. Musculoskeletal: Capillary refill < 3 seconds, Range of motion: intact in all extremities. 17:00 Reassessment: Patient appears in no apparent distress at this time. Patient and/or em family updated on plan of care and expected duration. Pain level reassessed. Patient is alert, oriented x 3, equal unlabored respirations, skin warm/dry/pink. Patient states feeling better. Patient states symptoms have improved. 18:15 Reassessment: Patient appears in no apparent distress at this time. Patient and/or em family updated on plan of care and expected duration. Pain level reassessed. Patient is alert, oriented x 3, equal unlabored respirations, skin warm/dry/pink. Patient denies pain at this time. Patient states feeling better. Patient states symptoms have improved. 18:33 Reassessment: Patient appears in no apparent distress at this time. report given to jamee Quispe RN at [facility], pending EMS transportation. 19:14 Reassessment: report given to [facility]. patient in good condition. pain-free, IV mg2 intact with IVF ongoing. Vital Signs: 15:31 BP 100 / 72; Pulse 95; Resp 18 S; Temp 98.2(O); Pulse Ox 100% on R/A; Weight 68.04 kg ca1 (R); Height 5 ft. 6 in. (167.64 cm) (R); Pain 8/10; 17:19 BP 93 / 73; Pulse 59; Resp 16; Pulse Ox 100% on R/A; em 18:00 BP 95 / 68; Pulse 67; Resp 18; Pulse Ox 100% on R/A; Pain 0/10; em 15:31 Body Mass Index 24.21 (68.04 kg, 167.64 cm) ca1 ED Course: 15:27 Patient arrived in ED. ag5 15:35 Triage completed. ca1 15:36 Arm band placed on right wrist. ca1 15:37 Jey Dave PA is PHCP. cp 15:37 Flako Mera MD is Attending Physician. cp 15:37 Neville Rodriguez, RED is Primary Nurse. em 16:03 Initial lab(s) drawn, by me, sent to lab. Urine collected: clean catch specimen, paulie lt1 colored. Inserted saline lock: 22 gauge in right antecubital area, using aseptic technique. 16:04 Call light in reach. Door closed. Lights dimmed. Warm blanket given. Verbal reassurance lt1 given. 16:30 US Abdomen Limited In Process Unspecified. EDMS 17:12 transfer initiated with Karli from the [facility] Transfer center. eb 17:[address] Sesay the GI youth corrections officer for [facility] with Jey MENDES for patient eb transfer consultation. 17:[address] Regan the hospitalist youth corrections officer for [facility] with Jey MENDES for patient eb transfer consultation. 18:05 administrative approval given by Beti Friend/ patient has been accepted to [facility] 15 tower bed 1514/ Dr Regan has accepted the patient in transfer/ report to be called to [phone]. 19:14 No provider procedures requiring assistance completed. Patient transferred, IV remains mg2 in place. Administered Medications: 16:34 Drug: Zofran (Ondansetron) 4 mg Route: IVP; Site: right antecubital; em 17:05 Follow up: Response: No adverse reaction; Marked relief of symptoms; Nausea is decreasedem 16:34 Drug: Pepcid 20 mg Route: IVP; Site: right antecubital; em 17:05 Follow up: Response: No adverse reaction; Marked relief of symptoms; Pain is decreased em 16:34 Drug: NS 0.9% 1000 ml Route: IV; Rate: 1 bolus; Site: right antecubital; em 18:17 Follow up: IV Status: Completed infusion; IV Intake: 1000ml em 17:04 Drug: Rocephin 1 grams Route: IV; Rate: calculated rate; Site: right antecubital; em 18:17 Follow up: Response: No adverse reaction; IV Status: Completed infusion; IV Intake: 10mlem 18:14 Drug: NS 0.9% 1000 ml Route: IV; Rate: 1 bolus; Site: right antecubital; em 19:12 Follow up: IV Status: Infusion continued upon transfer; IV Intake: 500ml mg2 18:38 Drug: Potassium Chloride 10 mEq Route: IV; Rate: calculated rate; Site: right em antecubital; 19:13 Follow up: IV Status: Infusion continued upon transfer; IV Intake: 47ml mg2 Intake: 18:17 IV: 10ml; Total: 10ml. em 18:17 IV: 1000ml; Total: 1010ml. em 19:12 IV: 500ml; Total: 1510ml. mg2 19:13 IV: 47ml; Total: 1557ml. mg2 Outcome: 17:59 ER care complete, transfer ordered by MD. cp 19:15 Transferred by ground EMS to [facility], Transfer form completed. mg2 19:15 Condition: improved 19:15 Instructed on the need for transfer, Demonstrated understanding of instructions. 19:16 Patient left the ED. mg2 Signatures: Dispatcher [employer] Neville Gilman RN RN em Jey Dave PA PA Margy Jacobson Michele, RN RN mg2 Lori Colon RN RN [facility] Amina Wang [facility] Eun Camarena [facility]
[2019-08-06] MEDS ORDERED: KCL 20 MEQ/100 mL IVPB 0 MEQ/0 ML BAG IV ONE (18:13)
[2019-08-06] MEDS ORDERED: NA CHLORIDE 0.9% 100 ML with POTASSIUM CL 10 MEQ IV ONE ×2 (19:00)
[2019-08-06 19:24] VITALS: TEMP 98.2; O2SAT 100
[2019-08-06 19:27] VITALS: BP 95/68
== END 2019-08-06 19:16 | disposition short-term general hospital (02) ==
LOC: ER 15:26
DX: K81.9 Cholecystitis, unspecified (principal); R94.5 Abnormal results of liver function studies; R11.10 Vomiting, unspecified; Z72.0 Tobacco use
CPT/HCPCS: 36415; 76705; 80048; 80076; 81003; 81025; 83690; 85025; 96361; 96365; 96367; 96375; 99285; J0696; J2405; J7030

== ENCOUNTER 2020-07-06 21:24 | Emergency (ER) | payer SELFPAY ==
--- NOTE | 2020-07-06 23:45 | EDPHYS ---
Physician Documentation [facility] Name: Amrita Saenz Age: 29 yrs Sex: Female : 1990 Arrival Date: 07/06/2020 Time: 21:24 Bed 13 Private MD: ED Physician Kyler Gibbs HPI: 07/07 00:09 This 29 yrs old Female presents to ER via Ambulatory with complaints of Arm kb Injury. 00:09 The patient or guardian complains of decreased range of motion, injury, pain, swelling, kb tenderness. The complaints affect the dorsum of right hand. Context: The problem was sustained outdoors, resulted from a fall. Onset: The symptoms/episode began/occurred yesterday. Treatment prior to arrival includes: no previous treatment. Modifying factors: The symptoms are alleviated by nothing. the symptoms are aggravated by nothing. Associated signs and symptoms: Pertinent positives: decreased range of motion, pain, swelling. Severity of symptoms: At their worst the symptoms were moderate, in the emergency department the symptoms are unchanged. The patient has not experienced similar symptoms in the past. The patient has not recently seen a physician. Pt reports she fell out of a 4 hernández yesterday and hurt her hand. Pain worse today. COGNOS: 07/06 22:02 LMP 07/06/2020 ca1 Historical: - Allergies: 22:02 No Known Allergies; ca1 - Home Meds: 22:02 None [Active]; ca1 - PMHx: 22:02 None; ca1 - PSHx: 22:02 None; ca1 - Immunization history:: Flu vaccine is not up to date. - Social history:: Smoking status: Patient reports the use of cigarette tobacco products, denies chronic smoking, but will smoke occasionally. ROS: 07/07 00:07 Constitutional: Negative for fever, chills, and weight loss, Neuro: Negative for kb headache, weakness, numbness, tingling, and seizure. MS/extremity: Positive for injury or acute deformity, decreased range of motion, ecchymosis, pain, swelling, tenderness, of the dorsum of right hand. Exam: 00:10 Constitutional: This is a well developed, well nourished patient who is awake, alert, kb and in no acute distress. Head/Face: Normocephalic, atraumatic. Respiratory: Respirations even and unlabored. No increased work of breathing, no retractions or nasal flaring. Neuro: Awake and alert, GCS 15, oriented to person, place, time, and situation. Moves all extremities. Normal gait. 00:10 Musculoskeletal/extremity: Extremities: grossly normal except: noted in the dorsum of right hand: decreased ROM, ecchymosis, pain, swelling, tenderness, ROM: limited active range of motion due to pain, in the right ring finger and right little finger, Circulation is intact in all extremities. Sensation intact. 00:10 Skin: Appearance: normal except for affected area, ecchymosis, noted on the, dorsum of right hand, that are moderate. Vital Signs: 07/06 21:59 BP 105 / 75; Pulse 53; Resp 16 S; Temp 97.6(TE); Pulse Ox 98% on R/A; Weight 63.5 kg ca1 (R); Height 5 ft. 6 in. (167.64 cm) (R); Pain 10/10; 07/07 00:10 BP 110 / 60; Pulse 61; Resp 18; Pulse Ox 100% on R/A; mg2 07/06 21:59 Body Mass Index 22.60 (63.50 kg, 167.64 cm) ca1 MDM: 07/06 22:56 Patient medically screened. kb 23:42 Data reviewed: vital signs, nurses notes. Data interpreted: Pulse oximetry: on room air kb is 98 %. Interpretation: normal. Counseling: I had a detailed discussion with the patient and/or guardian regarding: the historical points, exam findings, and any diagnostic results supporting the discharge/admit diagnosis, radiology results, the need for outpatient follow up, a family practitioner, to return to the emergency department if symptoms worsen or persist or if there are any questions or concerns that arise at home. 07/06 22:03 Order name: Hand Right 3 View XRAY ca1 07/06 23:32 Order name: Ulnar Gutter splint; Complete Time: 00:14 kb 07/06 23:32 Order name: Sling; Complete Time: 00:14 kb Administered Medications: 23:44 Drug: [place] (7.5 mg-325 mg) 1 tabs Route: PO; mg2 07/07 00:15 Follow up: Response: No adverse reaction mg2 07/06 23:44 Drug: Ibuprofen 600 mg Route: PO; mg2 07/07 00:15 Follow up: Response: No adverse reaction mg2 Disposition: 05:58 Co-signature as Attending Physician, Kyler Gibbs MD. [email or web address] Disposition: 07/06/20 23:43 Discharged to Home. Impression: Displaced fracture of base of fifth metacarpal bone, right hand. - Condition is Stable. - Discharge Instructions: Metacarpal Fracture, [id number]. - Prescriptions for Ibuprofen 600 mg Oral Tablet - take 1 tablet by ORAL route every 6 hours As needed take with food; 30 tablet. - Medication Reconciliation Form, Thank You Letter, Antibiotic Education, Prescription Opioid Use, Work release form form. - Follow up: Emergency Department; When: As needed; Reason: Worsening of condition. Follow up: Private Physician; When: 2 - 3 days; Reason: Recheck today's complaints, Continuance of care, Re-evaluation by your physician. Signatures: Dispatcher [employer] EDMS Lakeisha Cummings, KIA-C GRADUATE CIVIL ENGINEER-Heladio Lopez RN RN [facility] Lori Colon RN RN [facility] Kyler Gibbs MD MD 7 Corrections: (The following items were deleted from the chart) 00:22 07/06 23:43 07/06/2020 23:43 Discharged to Home. Impression: Displaced fracture of base mg2 of fifth metacarpal bone, right hand. Condition is Stable. Forms are Medication Reconciliation Form, Thank You Letter, Antibiotic Education, Prescription Opioid Use. Follow up: Emergency Department; When: As needed; Reason: Worsening of condition. Follow up: Private Physician; When: 2 - 3 days; Reason: Recheck today's complaints, Continuance of care, Re-evaluation by your physician. kb
--- NOTE | 2020-07-06 23:45 | ER ---
Nurse's Notes [facility] Name: Amrita Saenz Age: 29 yrs Sex: Female : 1990 Arrival Date: 07/06/2020 Time: 21:24 Bed 13 Private MD: Diagnosis: Displaced fracture of base of fifth metacarpal bone, right hand Presentation: 07/06 21:59 Chief complaint: Patient states: Fell off the [place] last night. Reports swelling, ca1 bruising and pain on R hand. Coronavirus screen: Client denies travel out of the [place] in the last 14 days. At this time, the client does not indicate any symptoms associated with coronavirus-19. Ebola Screen: Patient negative for fever greater than or equal to 101.5 degrees Fahrenheit, and additional compatible Ebola Virus Disease symptoms Patient denies exposure to infectious person. Patient denies travel to an Ebola-affected area in the 21 days before illness onset. No symptoms or risks identified at this time. Initial Sepsis Screen: Does the patient meet any 2 criteria? No. Patient's initial sepsis screen is negative. Does the patient have a suspected source of infection? No. Patient's initial sepsis screen is negative. Risk Assessment: Do you want to hurt yourself or someone else? Patient reports no desire to harm self or others. Onset of symptoms was July 06, 2020. 21:59 Method Of Arrival: Ambulatory ca1 21:59 Acuity: JUN 4 ca1 Triage Assessment: 07/07 00:10 General: Behavior is calm, cooperative. mg2 PRESS FEEDER BROOMCORN: 07/06 22:02 LMP 07/06/2020 ca1 Historical: - Allergies: 22:02 No Known Allergies; ca1 - Home Meds: 22:02 None [Active]; ca1 - PMHx: 22:02 None; ca1 - PSHx: 22:02 None; ca1 - Immunization history:: Flu vaccine is not up to date. - Social history:: Smoking status: Patient reports the use of cigarette tobacco products, denies chronic smoking, but will smoke occasionally. Screenin:56 Abuse screen: Denies threats or abuse. Denies injuries from another. mg2 22:56 Nutritional screening: No deficits noted. Tuberculosis screening: No symptoms or risk mg2 factors identified. Fall Risk Fall in past 12 months (25 points). Assessment: 22:56 General: Appears in no apparent distress. comfortable. Pain: Complains of pain in right mg2 hand. Neuro: Level of Consciousness is awake, alert, obeys commands, Oriented to person, place, time, situation. Cardiovascular: Capillary refill < 3 seconds Patient's skin is warm and dry. Respiratory: Airway is patent Respiratory effort is even, unlabored, Respiratory pattern is regular, symmetrical. GI: No signs and/or symptoms were reported involving the gastrointestinal system. : No signs and/or symptoms were reported regarding the genitourinary system. EENT: No signs and/or symptoms were reported regarding the EENT system. Derm: Bruising that is on right hand. Musculoskeletal: Circulation, motion, and sensation intact. Capillary refill < 3 seconds, Swelling present in right hand. Injury Description: Deformity sustained to right hand. Vital Signs: 21:59 BP 105 / 75; Pulse 53; Resp 16 S; Temp 97.6(TE); Pulse Ox 98% on R/A; Weight 63.5 kg ca1 (R); Height 5 ft. 6 in. (167.64 cm) (R); Pain 10/10; 07/07 00:10 BP 110 / 60; Pulse 61; Resp 18; Pulse Ox 100% on R/A; mg2 07/06 21:59 Body Mass Index 22.60 (63.50 kg, 167.64 cm) ca1 ED Course: 07/06 21:24 Patient arrived in ED. cl3 22:02 Triage completed. ca1 22:02 Arm band placed on right wrist. ca1 22:03 Lakeisha Cummings FNP[facility]C [facility]. kb 22:04 Kyler Gibbs MD is Attending Physician. kb 22:54 Hand Right 3 View XRAY In Process Unspecified. EDMS 22:58 Heladio Beltrán, RED is Primary Nurse. mg2 07/07 00:13 Patient has correct armband on for positive identification. mg2 00:13 No provider procedures requiring assistance completed. Patient did not have IV access mg2 during this emergency room visit. Orthoglass splint: Ulnar gutter/Boxer splint applied on right forearm. applied by JAMAAL Neville, checked by provider prior to discharge. 00:14 Sling applied to right arm. mg2 Administered Medications: 07/06 23:44 Drug: [place] (7.5 mg-325 mg) 1 tabs Route: PO; mg2 07/07 00:15 Follow up: Response: No adverse reaction mg2 07/06 23:44 Drug: Ibuprofen 600 mg Route: PO; mg2 07/07 00:15 Follow up: Response: No adverse reaction mg2 Outcome: 07/06 23:43 Discharge ordered by MD. mccullough 07/07 00:21 Discharged to home ambulatory. mg2 Condition: stable Discharge instructions given to patient, Instructed on discharge instructions, follow up and referral plans. medication usage, Demonstrated understanding of instructions, follow-up care, medications, splint care, Prescriptions given X 1. 00:22 Patient left the ED. mg2 Signatures: Dispatcher [employer] EDMS Lakeisha Cummings, MOTORCYCLE POLICE OFFICER-C MOTORCYCLE POLICE OFFICER-Ckb Heladio Beltrán RN RN mg2 Lori Colon RN RN Blair Forde cl3
[2020-07-06] MEDS ORDERED: HYDROCODONE/APAP 7.5/325 MG TAB ONE (23:55)
[2020-07-06] MEDS ORDERED: IBUPROFEN 200 MG TAB PO ONE (23:55)
[2020-07-07 00:48] VITALS: TEMP 97.6
[2020-07-07 00:50] VITALS: BP 110/60; O2SAT 100
--- NOTE | 2020-07-07 07:23 | RAD REPORT ---
EXAM DESCRIPTION: RAD - Hand Right 3 View - 07/06/2020 10:55 pm CLINICAL HISTORY: Right hand pain status post injury FINDINGS: A spiral mildly to moderately displaced fracture involves the mid to distal aspect of the fifth metacarpal with angulation present at the fracture site. No dislocation
== END 2020-07-07 00:22 | disposition home or self-care (01) ==
LOC: ER 21:24
PROC: 2W3CX1Z Immobilization of Right Lower Arm using Splint (ICD-10-PCS; principal; 2020-07-07)
DX: S62.316A Displaced fracture of base of fifth metacarpal bone, right hand, initial encounter for closed fracture (principal); W17.89XA Other fall from one level to another, initial encounter; Y93.9 Activity, unspecified; Y92.9 Unspecified place or not applicable; F17.210 Nicotine dependence, cigarettes, uncomplicated
CPT/HCPCS: 99284

== ENCOUNTER 2020-10-13 19:19 | Emergency (ER) | payer SELFPAY ==
--- OUTSIDE RECORDS SUMMARY | 2020-10-13 19:22 | XMS REPORT | Continuity of Care Document ---
:[address] [facility] t Address [address] [place] [address] Care Team Providers Name Role Phone Lab, Adc Fam Pob I Attending Clinician Unavailable Doctor Unassigned, Name Attending Clinician Unavailable Td MORALES Attending Clinician Unavailable TYLOR Admitting Clinician Unavailable Problems Condition Condition Condition Status Onset Resolution Last Treating Co mments Source Name Details Category Date Date Treatment Clinician Date Cholangiti Cholangiti Disease Active 2020-[address] [facility] 4[facility] - [facility] 00 [place] Choledocho Choledocho Disease Active 2020-[address] lithiasis lithiasis 4-17 [facility] - 00[facility]00: Medical 00 [place] RUQ RUQ Disease Active 2020-[address] abdominal abdominal 4-17 [facility] - pain pain 00:00: Medical 00 [place] Dehydratio Dehydratio Disease Active 2020-[address] n n 4-17 [facility] 00[facility]: Medical 00 [place] Intractabl Intractabl Disease Active 2020-[address] e vomiting e vomiting 4-17 [facility] - with with 00:00: Medical nausea nausea 00 Center Allergies, Adverse Reactions, Alerts This patient has no known allergies or adverse reactions. Social History Social Habit Start Date Stop Date Quantity Comments Source History SDOH [facility] St[facility] History SDOH [facility] - Alcohol Binge Medical [facility] Sex Assigned At [facility] History of tobacco Cigarette Smoker [facility] - use [facility] Cigarettes smoked 2019-08-09 2019-08-09 [facility] - current (pack per 00:00:00 00:00:00 Medical Center day) - Reported Cigarette 2019-08-09 2019-08-[address] [facility] - pack-years 00:00:00 00:00:00 [facility] Tobacco use and 2019-08-09 2019-08-[address] [facility] [address] [facility] - exposure 00:00:00 00:00:00 [facility] Alcohol intake 2019-08-09 2019-08-09 [facility]00 alcohol (finding) [facility] Tobacco Comment 2019-08-08 2019-08-08 2-[address] [facility] - 00:00:00 00:00:00 [facility] Alcohol Comment 2019-08-08 2019-08-[address] [facility] - 00:00:00 00:00:00 [facility] History SDOH 2019-08-06 2019-08-[address] [facility] - Alcohol Frequency 00:00:00 00:00:00 [facility] Smoking Status Start Date Stop Date Source Current every day smoker 2019-08-09 00:00:[address] [facility] - [facility] Medications This patient has no known medications. Procedures This patient has no known procedures. Plan of Care Planned Activity Planned Date Details Comments Source Future Scheduled 2019-12-21 INFLUENZA VACCINE (#1) [facility] Test 00:00:00 [code = INFLUENZA Medical Ce nter VACCINE (#1)] Future Scheduled [address] [facility] - Test 00:00:00 malignant neoplasm of Medica Center cervix (procedure) [code = 321117557] Future Scheduled [address] [facility] - Test 00:00:00 (procedure) [code = [facility] 92471467] Future Scheduled 1995-09-[address] [facility] - Test 00:00:00 0-64 YRS (1 of 1 - Medical C enter PPSV23) [code = PNEUMOCOCCAL VACCINE 0-64 YRS (1 of 1 - PPSV23)] Encounters Start End Encounter Admission Attending Care Care Encounter Source Date/Time Date/Time Type Type Clinicians Facility Department ID 2019-11-23 2019-11-23 Telephone Lab, [facility] [id number] 00:00:00 00:00:00 Fam Pob I Health [id number] [place] [id number] Professio [phone] nal [address] 2019-11-22 2019-11-22 Laboratory Lab, [facility] [id number] 10:34:11 10:54:11 Only Fam Pob I Health [id number] [place] [id number] Professio [phone] nal [address] 2019-11-22 2019-11-22 Letter Doctor WILVER [id number] 00:00:00 00:00:00 (Out) Unassigned, NATALIA [id number] [place] [id number] [phone] Results Test Description Test Time Test Comments Results Result Comments Source BLOOD CULTURE 2019-08-12 03:01:00 Test Item Value Reference Range Interpretation Comme nts CULTURE (BEAKER) (test code = 1095) No growth in 5 days BLOOD [id number] 03:01:00 Test Item Value Reference Range Interpretation Comments CULTURE (BEAKER) (test No growth in 5 days code = 1095) TISSUE [id number] 13:13:00Surgical Pathology Report Case: [id number] Authorizing Provider: Ember Domingo MD Collected: 08/09/2019 01:56 PM Ordering Location: [facility] PERIOPERATIVE Received: 08/09/2019 02:14 PM SERVICES Pathologist: Teresita Gardner MD Specimen: Gallbladder A. GALLBLADDER, CHOLECYSTECTOMY: - CHRONIC CHOLECYSTITIS WITH CHOLELITHIASIS. Signing Pathologist Direct Phone Line: [phone] signed by Teresita Gardner MD on 08/11/2019 at 1:13 [id number] Gallbladder Received fresh labeled with the patient's name, accession number and "gallbladder" is an intact gallbladder with a clipped cystid duct measuring 7.3 x 2.5 x 1.8 cm. The serosa is pink-lavender and smooth. A cystic duct lymph node is not present. The specimen is opened to reveal green viscous bile and a 1.5 cm circular, yellow-peck cholelith. The mucosa is green and trabeculated. The wallthickness ranges 0.1-0.2 cm. No gross lesions are identified. Quality Control Lead sections are submitted. Section code: A1, cystic duct margin en face; A2, gallbladder wall. CG/pl Performed.[facility], Department of Pathology, [address] [place] [address], [facility], [address] [place] [address], [facility], [facility], [address] [place] [address], [id number] 06:27:00 Test Item Value Reference Range Interpretation Comments MAGNESIUM (BEAKER) (test code = 1.9 mg/dL 1.6-2.6 627) Surgeon/President ID Ladonna BARTLETT WCOMPREHENSIVE METABOLIC [id number] 06:27:00 Test Item Value Reference Range Interpretation Comments TOTAL PROTEIN 7.1 gm/dL 6.0-8.3 (BEAKER) (test code = 770) ALBUMIN (BEAKER) 4.1 g/dL 3.5-5.0 (test code = 1145) ALKALINE PHOSPHATASE 164 U/L 40-150 H (BEAKER) (test code = 346) BILIRUBIN TOTAL 1.7 mg/dL 0.2-1.2 H (BEAKER) (test code = 377) SODIUM (BEAKER) (test 140 meq/L 136-145 code = 381) POTASSIUM (BEAKER) 3.7 meq/L 3.5-5.1 (test code = 379) CHLORIDE (BEAKER) 108 meq/L 98-107 H (test code = 382) CO2 (BEAKER) (test 23 meq/L 22-29 code = 355) BLOOD UREA NITROGEN 2 mg/dL 7-21 L (BEAKER) (test code = 354) CREATININE (BEAKER) 0.68 mg/dL 0.57-1.25 (test code = 358) GLUCOSE RANDOM 112 mg/dL 70-105 H (BEAKER) (test code = 652) CALCIUM (BEAKER) 9.1 mg/dL 8.4-10.2 (test code = 697) AST (SGOT) (BEAKER) 56 U/L 5-34 H (test code = 353) ALT (SGPT) (BEAKER) 177 U/L 6-55 H (test code = 347) EGFR (BEAKER) (test 102 ESTIMATE D GFR IS code = 1092) mL/min/1.73 sq NOT ACCURA TE m CREATININE CLEARANCE IN PREDICTING GLOMERULAR FILTRATION RATE . ESTIMATED GFR I S NOT APPLICABLE FOR DIALYSIS PATIEN TS. Surgeon/President ID - DHRUV WCBC W/PLT COUNT & AUTO [id number] 05:17:00 Test Item Value Reference Range Interpretation Comments WHITE BLOOD CELL COUNT (BEAKER) 8.9 K/ L 3.5-10.5 (test code = 775) RED BLOOD CELL COUNT (BEAKER) 4.16 M/ L 3.93-5.22 (test code = 761) HEMOGLOBIN (BEAKER) (test code = 13.7 GM/DL 11.2-15.7 410) HEMATOCRIT (BEAKER) (test code = 40.6 % 34.1-44.9 411) MEAN CORPUSCULAR VOLUME (BEAKER) 97.6 fL 79.4-94.8 H (test code = 753) MEAN CORPUSCULAR HEMOGLOBIN 32.9 pg 25.6-32.2 H (BEAKER) (test code = 751) MEAN CORPUSCULAR HEMOGLOBIN CONC 33.7 GM/DL 32.2-35.5 (BEAKER) (test code = 752) RED CELL DISTRIBUTION WIDTH 11.8 % 11.7-14.4 (BEAKER) (test code = 412) PLATELET COUNT (BEAKER) (test 329 K/CU MM 150-450 code = 756) MEAN PLATELET VOLUME (BEAKER) 10.9 fL 9.4-12.3 (test code = 754) NUCLEATED RED BLOOD CELLS 0 /100 WBC 0-0 (BEAKER) (test code = 413) NEUTROPHILS RELATIVE PERCENT 72 % (BEAKER) (test code = 429) LYMPHOCYTES RELATIVE PERCENT 21 % (BEAKER) (test code = 430) MONOCYTES RELATIVE PERCENT 7 % (BEAKER) (test code = 431) EOSINOPHILS RELATIVE PERCENT 0 % (BEAKER) (test code = 432) BASOPHILS RELATIVE PERCENT 0 % (BEAKER) (test code = 437) NEUTROPHILS ABSOLUTE COUNT 6.40 K/ L 1.56-6.13 H (BEAKER) (test code = 670) LYMPHOCYTES ABSOLUTE COUNT 1.84 K/ L 1.18-3.74 (BEAKER) (test code = 414) MONOCYTES ABSOLUTE COUNT (BEAKER) 0.64 K/ L 0.24-0.36 H (test code = 415) EOSINOPHILS ABSOLUTE COUNT 0.02 K/ L 0.04-0.36 L (BEAKER) (test code = 416) BASOPHILS ABSOLUTE COUNT (BEAKER) 0.01 K/ L 0.01-0.08 (test code = 417) IMMATURE GRANULOCYTES-RELATIVE 0 % 0-1 PERCENT (BEAKER) (test code = 2801) SCREEN, [id number] 09:41:00 Test Item Value Reference Range Interpretation Comments TEST URINE (BEAKER) (test Negative code = 583) COMPREHENSIVE METABOLIC [id number] 06:04:00 Test Item Value Reference Range Interpretation Comments TOTAL PROTEIN 6.1 gm/dL 6.0-8.3 (BEAKER) (test code = 770) ALBUMIN (BEAKER) 3.6 g/dL 3.5-5.0 (test code = 1145) ALKALINE PHOSPHATASE 163 U/L 40-150 H (BEAKER) (test code = 346) BILIRUBIN TOTAL 2.0 mg/dL 0.2-1.2 H (BEAKER) (test code = 377) SODIUM (BEAKER) (test 138 meq/L 136-145 code = 381) POTASSIUM (BEAKER) 3.4 meq/L 3.5-5.1 L (test code = 379) CHLORIDE (BEAKER) 108 meq/L 98-107 H (test code = 382) CO2 (BEAKER) (test 24 meq/L 22-29 code = 355) BLOOD UREA NITROGEN 4 mg/dL 7-21 L (BEAKER) (test code = 354) CREATININE (BEAKER) 0.65 mg/dL 0.57-1.25 (test code = 358) GLUCOSE RANDOM 131 mg/dL 70-105 H (BEAKER) (test code = 652) CALCIUM (BEAKER) 8.3 mg/dL 8.4-10.2 L (test code = 697) AST (SGOT) (BEAKER) 90 U/L 5-34 H (test code = 353) ALT (SGPT) (BEAKER) 206 U/L 6-55 H (test code = 347) EGFR (BEAKER) (test 108 ESTIMATE D GFR IS code = 1092) mL/min/1.73 sq NOT ACCURA TE m CREATININE CLEARANCE IN PREDICTING GLOMERULAR FILTRATION RATE . ESTIMATED GFR I S NOT APPLICABLE FOR DIALYSIS PATIEN TS. Surgeon/President ID - DARRYL [id number] 06:03:00 Test Item Value Reference Range Interpretation Comments MAGNESIUM (BEAKER) (test code = 1.8 mg/dL 1.6-2.6 627) Surgeon/President ID - DARRYL LCBC W/PLT COUNT & AUTO [id number] 05:14:00 Test Item Value Reference Range Interpretation Comments WHITE BLOOD CELL COUNT (BEAKER) 8.5 K/ L 3.5-10.5 (test code = 775) RED BLOOD CELL COUNT (BEAKER) 3.77 M/ L 3.93-5.22 L (test code = 761) HEMOGLOBIN (BEAKER) (test code = 12.8 GM/DL 11.2-15.7 410) HEMATOCRIT (BEAKER) (test code = 36.1 % 34.1-44.9 411) MEAN CORPUSCULAR VOLUME (BEAKER) 95.8 fL 79.4-94.8 H (test code = 753) MEAN CORPUSCULAR HEMOGLOBIN 34.0 pg 25.6-32.2 H (BEAKER) (test code = 751) MEAN CORPUSCULAR HEMOGLOBIN CONC 35.5 GM/DL 32.2-35.5 (BEAKER) (test code = 752) RED CELL DISTRIBUTION WIDTH 11.7 % 11.7-14.4 (BEAKER) (test code = 412) PLATELET COUNT (BEAKER) (test 275 K/CU MM 150-450 code = 756) MEAN PLATELET VOLUME (BEAKER) 10.9 fL 9.4-12.3 (test code = 754) NUCLEATED RED BLOOD CELLS 0 /100 WBC 0-0 (BEAKER) (test code = 413) NEUTROPHILS RELATIVE PERCENT 72 % (BEAKER) (test code = 429) LYMPHOCYTES RELATIVE PERCENT 20 % (BEAKER) (test code = 430) MONOCYTES RELATIVE PERCENT 6 % (BEAKER) (test code = 431) EOSINOPHILS RELATIVE PERCENT 2 % (BEAKER) (test code = 432) BASOPHILS RELATIVE PERCENT 0 % (BEAKER) (test code = 437) NEUTROPHILS ABSOLUTE COUNT 6.08 K/ L 1.56-6.13 (BEAKER) (test code = 670) LYMPHOCYTES ABSOLUTE COUNT 1.73 K/ L 1.18-3.74 (BEAKER) (test code = 414) MONOCYTES ABSOLUTE COUNT (BEAKER) 0.51 K/ L 0.24-0.36 H (test code = 415) EOSINOPHILS ABSOLUTE COUNT 0.13 K/ L 0.04-0.36 (BEAKER) (test code = 416) BASOPHILS ABSOLUTE COUNT (BEAKER) 0.02 K/ L 0.01-0.08 (test code = 417) IMMATURE GRANULOCYTES-RELATIVE 0 % 0-1 PERCENT (BEAKER) (test code = 2801) FL, [id number] 10:06:00Reason for exam:->ercpFINAL REPORT Fluoroscopy. History: Intraoperative. Findings: Radiologist wasnot present for the exam. Fluoroscopy was not performed by the undersigned. Please see operative report for details. Fluoroscopy Time: 380 secondsReference Air Kerma (Ka, r): 756 mGy. IMPRESSION:Intraoperative fluoroscopy. Please see operative report for details. Signed: David Fay Verified Date/Time: 08/08/2019 10:06:59 Reading Location: [address] Consult Reading Room [id number] 06:25:00 Test Item Value Reference Range Interpretation Comments MAGNESIUM (BEAKER) (test code = 1.8 mg/dL 1.6-2.6 627) Surgeon/President ID - PIAYA LCOMPREHENSIVE METABOLIC [id number] 06:25:00 Test Item Value Reference Range Interpretation Comments TOTAL PROTEIN 6.4 gm/dL 6.0-8.3 (BEAKER) (test code = 770) ALBUMIN (BEAKER) 3.7 g/dL 3.5-5.0 (test code = 1145) ALKALINE PHOSPHATASE 197 U/L 40-150 H (BEAKER) (test code = 346) BILIRUBIN TOTAL 2.3 mg/dL 0.2-1.2 H (BEAKER) (test code = 377) SODIUM (BEAKER) (test 140 meq/L 136-145 code = 381) POTASSIUM (BEAKER) 3.9 meq/L 3.5-5.1 (test code = 379) CHLORIDE (BEAKER) 109 meq/L 98-107 H (test code = 382) CO2 (BEAKER) (test 25 meq/L 22-29 code = 355) BLOOD UREA NITROGEN 4 mg/dL 7-21 L (BEAKER) (test code = 354) CREATININE (BEAKER) 0.69 mg/dL 0.57-1.25 (test code = 358) GLUCOSE RANDOM 71 mg/dL 70-105 (BEAKER) (test code = 652) CALCIUM (BEAKER) 8.9 mg/dL 8.4-10.2 (test code = 697) AST (SGOT) (BEAKER) 112 U/L 5-34 H (test code = 353) ALT (SGPT) (BEAKER) 243 U/L 6-55 H (test code = 347) EGFR (BEAKER) (test 101 ESTIMATE D GFR IS code = 1092) mL/min/1.73 sq NOT ACCURA TE m CREATININE CLEARANCE IN PREDICTING GLOMERULAR FILTRATION RATE . ESTIMATED GFR I S NOT APPLICABLE FOR DIALYSIS PATIEN TS. Surgeon/President ID - PIAYA LCBC W/PLT COUNT & AUTO [id number] 05:58:00 Test Item Value Reference Range Interpretation Comments WHITE BLOOD CELL COUNT 5.7 K/ L 3.5-10.5 (BEAKER) (test code = 775) RED BLOOD CELL COUNT 3.82 M/ L 3.93-5.22 L (BEAKER) (test code = 761) HEMOGLOBIN (BEAKER) 13.0 GM/DL 11.2-15.7 (test code = 410) HEMATOCRIT (BEAKER) 39.1 % 34.1-44.9 (test code = 411) MEAN CORPUSCULAR 102.4 fL 79.4-94.8 H Discordant MCV VOLUME (BEAKER) (test result s compared to code = 753) previous result s; clinical correl ation required. MEAN CORPUSCULAR 34.0 pg 25.6-32.2 H HEMOGLOBIN (BEAKER) (test code = 751) MEAN CORPUSCULAR 33.2 GM/DL 32.2-35.5 HEMOGLOBIN CONC (BEAKER) (test code = 752) RED CELL DISTRIBUTION 12.0 % 11.7-14.4 WIDTH (BEAKER) (test code = 412) PLATELET COUNT 271 K/CU MM 150-450 (BEAKER) (test code = 756) MEAN PLATELET VOLUME 10.9 fL 9.4-12.3 (BEAKER) (test code = 754) NUCLEATED RED BLOOD 0 /100 WBC 0-0 CELLS (BEAKER) (test code = 413) NEUTROPHILS RELATIVE 41 % PERCENT (BEAKER) (test code = 429) LYMPHOCYTES RELATIVE 44 % PERCENT (BEAKER) (test code = 430) MONOCYTES RELATIVE 10 % PERCENT (BEAKER) (test code = 431) EOSINOPHILS RELATIVE 4 % PERCENT (BEAKER) (test code = 432) BASOPHILS RELATIVE 1 % PERCENT (BEAKER) (test code = 437) NEUTROPHILS ABSOLUTE 2.34 K/ L 1.56-6.13 COUNT (BEAKER) (test code = 670) LYMPHOCYTES ABSOLUTE 2.49 K/ L 1.18-3.74 COUNT (BEAKER) (test code = 414) MONOCYTES ABSOLUTE 0.55 K/ L 0.24-0.36 H COUNT (BEAKER) (test code = 415) EOSINOPHILS ABSOLUTE 0.21 K/ L 0.04-0.36 COUNT (BEAKER) (test code = 416) BASOPHILS ABSOLUTE 0.05 K/ L 0.01-0.08 COUNT (BEAKER) (test code = 417) IMMATURE 0 % 0-1 GRANULOCYTES-RELATIVE PERCENT (BEAKER) (test code = 2801) MR, ABDOMEN, [id number] 11:00:00FINAL REPORT TECHNIQUE: MRI of the abdomen and MRCP WITHOUT intravenous contrast. 3-D volume reconstructions were obtained to evaluate the biliary ductal system. INDICATION: Choledocholithiasis. COMPARISON: None. FINDINGS: ABSENCE OF INTRAVENOUS CONTRAST DECREASES SENSITIVITY FOR DETECTION OF FOCAL LESIONS AND VASCULAR PATHOLOGY. LOWER THORAX: Unremarkable. LIVER: No hepatic signal abnormality. No focal hepatic lesions. BILIARY: The gallbladder contains a stone which measures1 cm with mild gallbladder wall edema. In addition, there is gallbladder sludge. Low medial insertion of the cystic duct. The common bile duct measures 0.5 cm. There is a focal dilation of the distal common bile duct of up to 0.8 cm. On some images, there is layering decreased T2 weighted signal in the distal common bile duct. There is decreased T2-weighted signal of the ampulla of Vater. SPLEEN: No splenomegaly.PANCREAS: No focal masses or ductal dilatation. ADRENALS: No adrenal nodules.KIDNEYS/URETERS: No hydronephrosis or solid mass lesions. PERITONEUM/RETROPERITONEUM: No free fluid.LYMPH NODES:No lymphadenopathy.VESSELS: Unremarkable. GI TRACT: No distention or wall thickening. BONES AND SOFTTISSUES: Unremarkable. IMPRESSION: 1.The majority of the common bile duct is normal in diameter at 0.5 cm. There is a focal dilation of the distal common bile duct up to 0.8 cm which is indeterminate but could be a type I choledochocele. No definite choledocholithiasis is seen. However, on some images, there is questionable layering decreased T2-weighted signal in the distal common bile duct which could be due to sludge. 2.There is a stone in the gallbladder with a mildly thickened gallbladder wall. No definite acute cholecystitis. The thickening of the gallbladder wall could be due to a systemic process or chronic cholecystitis. 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 Signed: Rommel Rader [facility] Verified Date/Time: 08/07/2019 11:00:16 Reading Location: [address] Body Reading Room Electronically signed by: ROMMEL RADER MD on08/07/2019 11:00 AMBILIRUBIN, [id number] 02:16:00 Test Item Value Reference Range Interpretation Comments BILIRUBIN DIRECT (BEAKER) (test 1.6 mg/dL 0.1-0.5 H code = 706) Surgeon/President ID - PIAYA LCOMPREHENSIVE METABOLIC [id number] 02:16:00 Test Item Value Reference Range Interpretation Comments TOTAL PROTEIN 6.1 gm/dL 6.0-8.3 (BEAKER) (test code = 770) ALBUMIN (BEAKER) 3.5 g/dL 3.5-5.0 (test code = 1145) ALKALINE PHOSPHATASE 225 U/L 40-150 H (BEAKER) (test code = 346) BILIRUBIN TOTAL 2.7 mg/dL 0.2-1.2 H (BEAKER) (test code = 377) SODIUM (BEAKER) (test 137 meq/L 136-145 code = 381) POTASSIUM (BEAKER) 3.4 meq/L 3.5-5.1 L (test code = 379) CHLORIDE (BEAKER) 111 meq/L 98-107 H (test code = 382) CO2 (BEAKER) (test 18 meq/L 22-29 L code = 355) BLOOD UREA NITROGEN 5 mg/dL 7-21 L (BEAKER) (test code = 354) CREATININE (BEAKER) 0.63 mg/dL 0.57-1.25 (test code = 358) GLUCOSE RANDOM 82 mg/dL 70-105 (BEAKER) (test code = 652) CALCIUM (BEAKER) 7.9 mg/dL 8.4-10.2 L (test code = 697) AST (SGOT) (BEAKER) 134 U/L 5-34 H (test code = 353) ALT (SGPT) (BEAKER) 248 U/L 6-55 H (test code = 347) EGFR (BEAKER) (test 112 ESTIMATE D GFR IS code = 1092) mL/min/1.73 sq NOT ACCURA TE m CREATININE CLEARANCE IN PREDICTING GLOMERULAR FILTRATION RATE . ESTIMATED GFR I S NOT APPLICABLE FOR DIALYSIS PATIEN TS. Surgeon/President ID - PIAYA LSpecimen slightly ictericLACTIC ACID, [id number] 02:10:00 Test Item Value Reference Range Interpretation Comments LACTATE BLOOD VENOUS 0.75 mmol/L 0.50-2.20 Specime n slightly (2) (BEAKER) (test hemolyzed code = 8272) Surgeon/President ID - PIAYA LSpecimen slightly ictericPT/[id number] 02:06:00 Test Item Value Reference Range Interpretation Comments PROTIME (BEAKER) (test code = 13.1 seconds 11.9-14.2 759) INR (BEAKER) (test code = 370) 1.0 <=5.9 PARTIAL THROMBOPLASTIN TIME 28.6 seconds 22.5-36.0 (BEAKER) (test code = 760) Effective 09/16/2018: PT Reference Range ChangeNew: 11.9-14.2 Previous: 11.7- 14.7RECOMMENDED COUMADIN/WARFARIN INR THERAPY RANGESSTANDARD DOSE: 2.0-3.0 Includes: PROPHYLAXIS for venous thrombosis, systemic embolization; TREATMENT for venous thrombosis and/or pulmonary embolus.HIGH RISK: Target INR is2.5-3.5 for patients wiht mechanical heart valves.CBC W/PLT COUNT & AUTO [id number] 01:59:00 Test Item Value Reference Range Interpretation Comments WHITE BLOOD CELL COUNT (BEAKER) 6.3 K/ L 3.5-10.5 (test code = 775) RED BLOOD CELL COUNT (BEAKER) 3.69 M/ L 3.93-5.22 L (test code = 761) HEMOGLOBIN (BEAKER) (test code = 12.7 GM/DL 11.2-15.7 410) HEMATOCRIT (BEAKER) (test code = 36.0 % 34.1-44.9 411) MEAN CORPUSCULAR VOLUME (BEAKER) 97.6 fL 79.4-94.8 H (test code = 753) MEAN CORPUSCULAR HEMOGLOBIN 34.4 pg 25.6-32.2 H (BEAKER) (test code = 751) MEAN CORPUSCULAR HEMOGLOBIN CONC 35.3 GM/DL 32.2-35.5 (BEAKER) (test code = 752) RED CELL DISTRIBUTION WIDTH 11.9 % 11.7-14.4 (BEAKER) (test code = 412) PLATELET COUNT (BEAKER) (test 259 K/CU MM 150-450 code = 756) MEAN PLATELET VOLUME (BEAKER) 11.0 fL 9.4-12.3 (test code = 754) NUCLEATED RED BLOOD CELLS 0 /100 WBC 0-0 (BEAKER) (test code = 413) NEUTROPHILS RELATIVE PERCENT 52 % (BEAKER) (test code = 429) LYMPHOCYTES RELATIVE PERCENT 36 % (BEAKER) (test code = 430) MONOCYTES RELATIVE PERCENT 10 % (BEAKER) (test code = 431) EOSINOPHILS RELATIVE PERCENT 3 % (BEAKER) (test code = 432) BASOPHILS RELATIVE PERCENT 1 % (BEAKER) (test code = 437) NEUTROPHILS ABSOLUTE COUNT 3.24 K/ L 1.56-6.13 (BEAKER) (test code = 670) LYMPHOCYTES ABSOLUTE COUNT 2.23 K/ L 1.18-3.74 (BEAKER) (test code = 414) MONOCYTES ABSOLUTE COUNT (BEAKER) 0.60 K/ L 0.24-0.36 H (test code = 415) EOSINOPHILS ABSOLUTE COUNT 0.17 K/ L 0.04-0.36 (BEAKER) (test code = 416) BASOPHILS ABSOLUTE COUNT (BEAKER) 0.04 K/ L 0.01-0.08 (test code = 417) IMMATURE GRANULOCYTES-RELATIVE 0 % 0-1 PERCENT (BEAKER) (test code = 2801) CBC W/PLT COUNT & AUTO [id number] 01:59:00 Test Item Value Reference Range Interpretation Comments WHITE BLOOD CELL COUNT (BEAKER) 6.1 K/ L 3.5-10.5 (test code = 775) RED BLOOD CELL COUNT (BEAKER) 3.69 M/ L 3.93-5.22 L (test code = 761) HEMOGLOBIN (BEAKER) (test code = 12.5 GM/DL 11.2-15.7 410) HEMATOCRIT (BEAKER) (test code = 35.9 % 34.1-44.9 411) MEAN CORPUSCULAR VOLUME (BEAKER) 97.3 fL 79.4-94.8 H (test code = 753) MEAN CORPUSCULAR HEMOGLOBIN 33.9 pg 25.6-32.2 H (BEAKER) (test code = 751) MEAN CORPUSCULAR HEMOGLOBIN CONC 34.8 GM/DL 32.2-35.5 (BEAKER) (test code = 752) RED CELL DISTRIBUTION WIDTH 11.9 % 11.7-14.4 (BEAKER) (test code = 412) PLATELET COUNT (BEAKER) (test 245 K/CU MM 150-450 code = 756) MEAN PLATELET VOLUME (BEAKER) 11.2 fL 9.4-12.3 (test code = 754) NUCLEATED RED BLOOD CELLS 0 /100 WBC 0-0 (BEAKER) (test code = 413) NEUTROPHILS RELATIVE PERCENT 53 % (BEAKER) (test code = 429) LYMPHOCYTES RELATIVE PERCENT 34 % (BEAKER) (test code = 430) MONOCYTES RELATIVE PERCENT 10 % (BEAKER) (test code = 431) EOSINOPHILS RELATIVE PERCENT 3 % (BEAKER) (test code = 432) BASOPHILS RELATIVE PERCENT 1 % (BEAKER) (test code = 437) NEUTROPHILS ABSOLUTE COUNT 3.21 K/ L 1.56-6.13 (BEAKER) (test code = 670) LYMPHOCYTES ABSOLUTE COUNT 2.06 K/ L 1.18-3.74 (BEAKER) (test code = 414) MONOCYTES ABSOLUTE COUNT (BEAKER) 0.59 K/ L 0.24-0.36 H (test code = 415) EOSINOPHILS ABSOLUTE COUNT 0.17 K/ L 0.04-0.36 (BEAKER) (test code = 416) BASOPHILS ABSOLUTE COUNT (BEAKER) 0.05 K/ L 0.01-0.08 (test code = 417) IMMATURE GRANULOCYTES-RELATIVE 0 % 0-1 PERCENT (BEAKER) (test code = 2801)
[2020-10-13 22:39] LABS: Absolute Lymphocytes (CBC) 2.3 K/uL (0.7-4.9); Basophils % 0.7 % (0-1.3); Lymphocytes % 32.3 % (15.3-44.8); MPV 9.8 fL (7.6-11.3); RBC Red Blood Cell Count 4.14 M/uL (3.86-4.86)
[2020-10-13 22:41] LABS: Urine Blood Negative (Negative); Urine Glucose Negative (Negative); Urine Protein Negative (Negative); Urine Specific Gravity >=1.030 (1.005-1.030); Urine pH 5.5 (5.0-7.0)
[2020-10-13 22:51] LABS: Albumin 4.1 g/dL (3.4-5.0); Bilirubin Direct 0.2 mg/dL (0-0.2); Bilirubin Total 0.6 mg/dL (0.2-1.0); Potassium 3.8 mmol/L (3.5-5.1); Protein, Total 7.4 g/dL (6.4-8.2)
[2020-10-13 23:23] LABS: Urine Specific Gravity/Preg >1.030 (1.005-1.030)
[2020-10-14] MEDS ORDERED: FAMOTIDINE 20 MG/2 ML VIAL IV ONE (00:37)
[2020-10-14] MEDS ORDERED: NA CHLORIDE 0.9% 1,000 ML ONE (00:37)
[2020-10-14] MEDS ORDERED: METOCLOPRAMIDE 10 MG/2mL INJ ONE (00:37)
--- NOTE | 2020-10-14 00:46 | EDPHYS ---
Physician Documentation [facility] Name: Amrita Saenz Age: 30 yrs Sex: Female : 1990 Arrival Date: 10/13/2020 Time: 19:22 Bed 15 Private MD: ED Physician Kyler Gibbs HPI: 10/13 23:44 This 30 yrs old Female presents to ER via Ambulatory with complaints of m Abdominal Pain. 23:44 The patient presents with abdominal pain. Onset: The symptoms/episode began/occurred jmm gradually. The symptoms do not radiate. Associated signs and symptoms: Pertinent positives: nausea and vomiting. The symptoms are described as achy. Modifying factors: The symptoms are alleviated by nothing, the symptoms are aggravated by food. The patient has experienced a previous episode, approximately 1 years ago. 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 Flu vaccine is not up to date. - Social history:: Smoking status: Reported history of juuling and/or vaping. Patient uses alcohol, occasionally. ROS: 23:44 Constitutional: Negative for fever, chills, and weight loss, Cardiovascular: Negative jmm for chest pain, palpitations, and edema, Respiratory: Negative for shortness of breath, cough, wheezing, and pleuritic chest pain. 23:44 Back: Negative for injury and pain, MS/Extremity: Negative for injury and deformity, Skin: Negative for injury, rash, and discoloration. 23:44 Abdomen/GI: Positive for abdominal pain, nausea and vomiting, diarrhea. 23:44 All other systems are negative. Exam: 23:44 Constitutional: This is a well developed, well nourished patient who is awake, alert, jmm and in no acute distress. Head/Face: atraumatic. Eyes: EOMI, no conjunctival erythema appreciated ENT: Moist Mucus Membranes Neck: Trachea midline, Supple Chest/axilla: Normal chest wall appearance and motion. Cardiovascular: Regular rate and rhythm. No edema appreciated Respiratory: Normal respirations, no respiratory distress appreciated 23:44 Back: Normal ROM Skin: General appearance color normal MS/ Extremity: Moves all extremities, no obvious deformities appreciated, no edema noted to the lower extremities Neuro: Awake and alert, normal gait Psych: Behavior is normal, Mood is normal, Patient is cooperative and pleasant 23:44 Abdomen/GI: Inspection: abdomen appears normal, Bowel sounds: normal, Palpation: soft, mild abdominal tenderness, in the right upper quadrant and left upper quadrant. Vital Signs: 19:48 BP 94 / 65; Pulse 96; Resp 18 S; Temp 97.3(TE); Pulse Ox 100% on R/A; Weight 48.53 kg ca1 (R); Height 5 ft. 6 in. (167.64 cm) (R); Pain 8/10; 10/14 00:41 BP 92 / 66; Pulse 74; Resp 19; Pulse Ox 98% on R/A; Pain 0/10; fu 10/13 19:48 Body Mass Index 17.27 (48.53 kg, 167.64 cm) ca1 MDM: 10/13 22:39 Patient medically screened. [facility] 10/14 00:43 Data reviewed: vital signs, nurses notes. Counseling: I had a detailed discussion with corrine the patient and/or guardian regarding: the historical points, exam findings, and any diagnostic results supporting the discharge/admit diagnosis, lab results, radiology results, the need for outpatient follow up, to return to the emergency department if symptoms worsen or persist or if there are any questions or concerns that arise at home. ED course: Labs negative. Patient advised to follow up with GI for further evaluation. Patient understood and agrees with the plan of care. . 10/13 22:19 Order name: Basic Metabolic Panel; Complete Time: 23:05 [facility] 10/13 22:19 Order name: CBC with Diff; Complete Time: 23:05 [facility] 10/13 22:19 Order name: Hepatic Function; Complete Time: 23:05 [facility] 10/13 22:19 Order name: Lipase; Complete Time: 23:05 [facility] 10/13 22:41 Order name: Urine Dipstick-Ancillary; Complete Time: 23:05 [facility] 10/13 22:46 Order name: Urine --Ancillary (enter results); Complete Time: 23:28 2 10/13 22:19 Order name: IV Saline Lock; Complete Time: 22:20 [facility] 10/13 22:19 Order name: Labs collected and sent; Complete Time: 22:20 5 10/13 22:26 Order name: Urine Dipstick-Ancillary (obtain specimen); Complete Time: 22:43 rr5 10/13 22:27 Order name: Urine Test (obtain specimen); Complete Time: 22:43 5 10/13 22:40 Order name: CT Abd/Pelvis - IV Contrast Only noah Administered Medications: 00:20 Drug: Reglan (metoCLOPramide) 10 mg Route: IVP; Site: right antecubital; zb 01:20 Follow up: Response: No adverse reaction fu 00:21 Drug: Pepcid (famotidine) 20 mg Route: IVP; Site: right antecubital; zb 01:20 Follow up: Response: No adverse reaction fu 00: Drug: NS 0.9% 1000 ml Route: IV; Rate: 1 bolus; Site: right antecubital; zb 02:00 Follow up: Response: No adverse reaction; IV Intake: 1000ml fu Disposition: 06:42 Co-signature as Attending Physician, Kyler Gibsb MD. [facility] Disposition: 10/14/20 00:45 Discharged to Home. Impression: Vomiting, Diarrhea, unspecified. - Condition is Stable. - Discharge Instructions: Food Choices to Help Relieve Diarrhea, Adult, Nausea and Vomiting, Adult. - Prescriptions for Zofran 4 mg Oral tablet - take 1 tablet by ORAL route 4 times per day; 20 tablet. Bentyl 20 mg Oral Tablet - take 2 tablet by ORAL route every 6 hours As needed; 40 tablet. Prilosec 20 mg Oral Capsule - take 1 capsule by ORAL route once daily; 10 capsule. - Medication Reconciliation Form, Thank You Letter, Antibiotic Education, Prescription Opioid Use form. - Follow up: Rio Jacobs MD; When: 2 - 3 days; Reason: Recheck today's complaints, Continuance of care, Re-evaluation by your physician. Signatures: Dispatcher [employer] EDMS Gregory Lagos PA PA jmm Umadhay, Felix, RN RN fu Roque, Raymond, RN RN 5 Lori Colon RN RN [facility] Kyler Gibbs MD MD [facility] María Ge RN RN zb Corrections: (The following items were deleted from the chart) 02:11 00:45 10/14/2020 00:45 Discharged to Home. Impression: Vomiting; Diarrhea, unspecified. fu Condition is Stable. Forms are Medication Reconciliation Form, Thank You Letter, Antibiotic Education, Prescription Opioid Use. Follow up: Rio Jacobs; When: 2 - 3 days; Reason: Recheck today's complaints, Continuance of care, Re-evaluation by your physician. corrine
--- NOTE | 2020-10-14 00:46 | ER ---
Nurse's Notes [facility] Name: Amrita Saenz Age: 30 yrs Sex: Female : 1990 Arrival Date: 10/13/2020 Time: 19:22 Bed 15 Private MD: Diagnosis: Vomiting;Diarrhea, unspecified Presentation: 10/13 19:48 Chief complaint: Patient states: Upper abdominal pain x 3 days. Reports Watery black ca1 stool, N/V. Coronavirus screen: Client denies travel out of the [place] in the last 14 days. At this time, the client does not indicate any symptoms associated with coronavirus-19. Ebola Screen: Patient negative for fever greater than or equal to 101.5 degrees Fahrenheit, and additional compatible Ebola Virus Disease symptoms Patient denies exposure to infectious person. Patient denies travel to an Ebola-affected area in the 21 days before illness onset. No symptoms or risks identified at this time. Initial Sepsis Screen: Does the patient meet any 2 criteria? No. Patient's initial sepsis screen is negative. Does the patient have a suspected source of infection? No. Patient's initial sepsis screen is negative. Risk Assessment: Do you want to hurt yourself or someone else? Patient reports no desire to harm self or others. Onset of symptoms was October 13, 2020. 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 Flu vaccine is not up to date. - Social history:: Smoking status: Reported history of juuling and/or vaping. Patient uses alcohol, occasionally. Screenin/26 00:30 Fall Risk None identified. fu 01:18 Abuse screen: Denies threats or abuse. Nutritional screening: No deficits noted. fu Tuberculosis screening: No symptoms or risk factors identified. Assessment: 00:10 General: Appears in no apparent distress. Behavior is calm, cooperative, appropriate fu for age. Pain: Complains of pain in left upper quadrant and right upper quadrant Pain does not radiate. Pain currently is 6 out of 10 on a pain scale. Quality of pain is described as aching. Neuro: Level of Consciousness is awake, alert, obeys commands, Oriented to person, place, time, situation, Cloth Reeler are equal bilaterally Moves all extremities. Gait is steady, Speech is normal, Facial symmetry appears normal. Cardiovascular: Denies chest pain. GI: Bowel sounds present X 4 quads. Abd is soft. : No signs and/or symptoms were reported regarding the genitourinary system. Vital Signs: 10/13 19:48 BP 94 / 65; Pulse 96; Resp 18 S; Temp 97.3(TE); Pulse Ox 100% on R/A; Weight 48.53 kg ca1 (R); Height 5 ft. 6 in. (167.64 cm) (R); Pain 8/10; 10/14 00:41 BP 92 / 66; Pulse 74; Resp 19; Pulse Ox 98% on R/A; Pain 0/10; fu 10/13 19:48 Body Mass Index 17.27 (48.53 kg, 167.64 cm) ca1 ED Course: 10/13 19:22 Patient arrived in ED. es 19:51 Triage completed. ca1 19:52 Arm band placed on right wrist. ca1 22:14 Gregory Lagos PA is PHCP. [facility] 22:14 Kyler Gibbs MD is Attending Physician. m 22:20 Patient has correct armband on for positive identification. Bed in low position. Call rr5 light in reach. Pulse ox on. NIBP on. 22:20 Inserted saline lock: 20 gauge in right antecubital area, using aseptic technique. rr5 Blood collected. 23:24 CT Abd/Pelvis - IV Contrast Only In Process Unspecified. EDMS 10/14 00:12 Chin Cali, RED is Primary Nurse. rr5 00:45 Rio Jacobs MD is Referral Physician. [facility] 02:00 No provider procedures requiring assistance completed. IV discontinued, bleeding fu controlled, Pressure dressing applied. Administered Medications: 00:20 Drug: Reglan (metoCLOPramide) 10 mg Route: IVP; Site: right antecubital; zb 01:20 Follow up: Response: No adverse reaction fu 00:21 Drug: Pepcid (famotidine) 20 mg Route: IVP; Site: right antecubital; zb 01:20 Follow up: Response: No adverse reaction fu 00:21 Drug: NS 0.9% 1000 ml Route: IV; Rate: 1 bolus; Site: right antecubital; zb 02:00 Follow up: Response: No adverse reaction; IV Intake: 1000ml fu Intake: 02:00 IV: 1000ml; Total: 1000ml. fu Outcome: 00:45 Discharge ordered by MD. [place] 02:00 Discharged to home ambulatory, with friend. fu 02:00 Condition: stable 02:00 Discharge instructions given to patient, Instructed on discharge instructions, follow up and referral plans. Demonstrated understanding of instructions, follow-up care, Prescriptions given X 3. 02:11 Patient left the ED. fu Signatures: Dispatcher [employer] EDMS Gregory Lagos PA PA jmm Salyer, Edna es Umadhay, Felix, RN Chin Zheng RN RN rr5 Lori Colon RN María Scott RN RED zb Corrections: (The following items were deleted from the chart) 05:59 02:00 Discharge instructions given to patient, Instructed on discharge instructions, fu follow up and referral plans. Demonstrated understanding of instructions, follow-up care, Prescriptions given X 2, fu
[2020-10-14 02:28] VITALS: TEMP 97.3
[2020-10-14 02:29] VITALS: BP 92/66; O2SAT 98
--- NOTE | 2020-10-14 20:10 | RAD REPORT ---
EXAM DESCRIPTION: CT - Abdomen Pelvis W Contrast - 10/14/2020 6:35 am CLINICAL HISTORY: 30 years Female abdominal pain, vomiting, diarrhea COMPARISON: None. TECHNIQUE: Contiguous axial images obtained through the abdomen and pelvis following IV contrast. Re formatted images obtained. This exam was performed according to our department optimization program which includes automated exp osure control, adjustment of the mA and/or kv according to patient size and/or use of iterative recon struction technique. FINDINGS: Small blebs in the lungs. Mild fatty replacement in the liver around the region of the falciform ligament. The spleen and pancreas appear unremarkable. No adrenal masses. The kidneys appear unremarkable. No hydronephrosis. Changes from previous cholecystectomy. No aneurysmal dilatation of the aorta. No bowel obstruction. The appendix appears unremarkable. No significant free pelvic fluid. No acute osseous abnormality is identified. IMPRESSION: No acute intra-abdominal abnormality is identified. Electronically signed by: Ivan Hwang MD 10/13/2020 11:44 PM CDT Due to temporary technical issues with the PACS/Fluency reporting system, reports are being signed by the in house radiologists without review as a courtesy to insure prompt reporting. The interpreting radiologist is fully responsible for the content of the report
== END 2020-10-14 02:11 | disposition home or self-care (01) ==
LOC: ER 19:19
DX: R19.7 Diarrhea, unspecified (principal)
CPT/HCPCS: 36415; 74177; 80048; 80076; 81003; 81025; 83690; 85025; 96374; 96375; 99284; J2765; J7030; Q9967

== ENCOUNTER 2024-12-10 20:05 | Emergency (ER) | payer SELFPAY ==
--- OUTSIDE RECORDS SUMMARY | 2024-12-10 20:42 | XMS REPORT | Continuity of Care Document ---
Author Name Unknown Address [address] [facility] [place] [address] [facility] [place] Address [address] [facility] [address] [place] [address] Care Team Providers Care Airline Customer Service Agent Name Role Phone PCP, PATIENT DOES NOT HAVE A Primary Care Physic donnie Unavailable MAE POOLE Attending Clinician Unavailable Mae Poole NP Attending Clinician [phone] Doctor Unassigned, [place] Attending Clinician U navailable Lab, Adc Fam Pob I Attending Clinician Unavailab Jigna Stanley Attending Clinician [phone] JIGNA MELENDEZ Attending Clinician Unavailable TERRY MORALES Attending Clinician UnavailMAE Whitlock Admitting Clinician Unavailable SHAI SNIDER Admitting Clinician Unav ailable Payers Payer Name Policy Type Policy Number Effective Date Expirati on Date Source MEDICAID ALIEN PENDING PENDING 2021 00:00:00 Problems Condition Name Condition Details Condition Category Status Onset Date Resolution Date Last Treatment Date Treating Clinician Comments Source No known active problems No known active problems Disease [facility] Allergies, Adverse Reactions, Alerts Allergy Name Allergy Type Status Severity Reaction(s) Onset Date Inactive Date Treating Clinician Comments Source NO KNOWN ALLERGIE S Drug Class Active [facility] NO KNOWN ALLERGIE S Allergy Active [facility] Social History Social Habit Start Date Stop Date Quantity Comments Source Exposure to SARS-CoV-2 (event) Not sure [facility] Sex Assigned At 1990 00:00:00 1990 00:00:00 [facility] Smoking Status Start Date Stop Date Source Unknown if ever smoked [facility] Medications Ordered Medication Name Filled Medication Name Start Date Stop Date Current Medication? Ordering Clinician Indication Dosage Frequency Signature (SIG) Comments Components Source No known medications 04-22 18:50: 42 No [facility] Vital Signs Vital Name Observation Time Observation Value Comments S our Systolic blood pressure 2021-04-23 00:56:00 101 mm[facility]Hg[facility] Diastolic blood pressure 2021-04-23 00:56:00 70 mm[Hg[facility] Heart rate 2021-04-23 00:56:00 83 /min [facility] Body temperature 2021-04-23 00:56:00 36.44 Carolyne [facility] Respiratory rate 2021-04-23 00:56:00 16 /min [facility] Body height 2021-04-23 00:56:00 167.6 cm [facility] Body weight 2021-04-23 00:56:00 48.081 kg [facility] BMI 2021-04-23 00:56:00 17.11 kg/m2 [facility] Oxygen saturation in Arterial blood by Pulse oximetry 2021-04-23 00:56:00 100 /min [facility] Procedures Procedure Date / Time Performed Performing Clinicia n Source XR CHEST 1 VW 2021-04-23 01:32:33 Mae Poole [facility] RAPID INFLUENZA A/B 2021-04-23 01:07:00 Mae Poole [facility] CONSENT/REFUSAL FOR DIAGNOSIS AND TREATMENT 2021-04-23 00:37:35 Doctor Unassigned, [place] [facility] Encounters Start Date/Time End Date/Time Encounter Type Admission Type Attending Clinicians Care Facility Care Department Encounter ID Source 2019-08-06 20:20:00 Inpatient [facility] [id number] [facility] 2021-04-22 19:07:00 2021-04-22 20:22:00 Emergency X MAE POOLE [facility] ERT [id number] [facility] 2021-04-22 19:07:00 2021-04-22 20:22:00 Emergency Mae Poole G [facility] [id number] 4.2.7.2.686 [id number] [facility] 2021-04-22 00:00:00 2021-04-22 00:00:00 Orders Only Doctor Unassigned, [place] [facility] [id number] 350.1.13.10 [id number] [id number] [facility] 2019-11-23 00:00:00 2019-11-23 00:00:00 Telephone Lab, [facility] Pob [facility] [address] [id number] [id number] [id number] [id number] 2019-11-23 00:00:00 2019-11-23 00:00:00 [facility] [id number] [id number] 4.2.7.2.686 [id number] [facility] 2019-11-22 10:34:11 2019-11-22 10:54:11 Laboratory Only Lab, [facility] Fam Pob I [facility] [id number] [id number] [id number] [id number] 2019-11-22 10:34:11 2019-11-22 10:54:11 Laboratory Only Lab, [facility] Fam Pob I Jigna Melendez [facility] [address] [id number] 350.1.13.10 4.2.7.2.686 [id number] [facility] 2019-11-22 10:20:00 2019-11-22 10:20:00 Outpatient JIGNA MULLINS [place] [id number] [facility] 2019-11-22 00:00:00 2019-11-22 00:00:00 Letter (Out) Doctor Unassigned, [place] [facility] [id number] 350.1.13.10 4.2.7.2.686 [id number] 2019-11-22 00:00:00 2019-11-22 00:00:00 Letter (Out) Doctor Unassigned, [place] [facility] [id number] 350.1.13.10 4.2.7.2.686 [id number] [facility] Results Test Description Test Time Test Comments Results Result Co mments Source TISSUE [id number] 13:13:00Surgical Pathology Report Case: [id number] Authorizing Provider: Ember Domingo MD Collected: 08/09/2019 01:56 PM Ordering Location: [facility] PERIOPERATIVE Received: 08/09/2019 02:14 PM SERVICES Pathologist: Teresita Gardner MD Specimen: Gallbladder A. GALLBLADDER, CHOLECYSTECTOMY: - CHRONIC CHOLECYSTITIS WITH CHOLELITHIASIS. Signing Pathologist Direct Phone Line: [phone] signed by Teresita Gardner MD on 08/11/2019 at 1:13 [id number] Gallbladder Received fresh labeled with thepatient's name, accession number and "gallbladder" is an intact gallbladder with a clipped cystid duct measuring 7.3 x 2.5 x 1.8 cm. The serosa is pink-lavender and smooth. A cystic duct lymph node is not present. The specimen is opened to reveal green viscous bile and a 1.5 cm circular, yellow-tancholelith. The mucosa is green and trabeculated. The wall thickness ranges 0.1-0.2 cm. No gross lesions are identified. Proof Plate Maker sections are submitted. Section code: A1, cystic duct margin en face; A2, gallbladder wall. CG/pl Performed.[facility], Department of Pathology, [address] [place] [address], [facility], [address] [place] [address], [facility], [facility], [address] [place] [address], [id number] 06:27:00 * Test Item Value Reference Range Interpretation Comme nts MAGNESIUM (BEAKER) (test cod e = 627) 1.9 mg/dL 1.6-2.6 Branch Logistics Supervisor SHAGUFTA BARTLETT WCOMPREHENSIVE METABOLIC [id number] 06:27:00* Test Item Value Reference Range Interpretation Comme nts TOTAL PROTEIN (BEAKER) (test code = 770) 7.1 gm/dL 6.0-8.3 ALBUMIN (BEAKER) (test code = 1145) 4.1 g/dL 3.5-5.0 ALKALINE PHOSPHATASE (BEAKER) (test code = 346) 164 U/L 40-150 H BILIRUBIN TOTAL (BEAKER) (test code = 377) 1.7 mg/dL 0.2-1.2 H SODIUM (BEAKER) (test code = 381) 140 meq/L 136-145 POTASSIUM (BEAKER) (test code = 379) 3.7 meq/L 3.5-5.1 CHLORIDE (BEAKER) (test code = 382) 108 meq/L 98-107 H CO2 (BEAKER) (test code = 355) 23 meq/L 22-29 BLOOD UREA NITROGEN (BEAKER) (test code = 354) 2 mg/dL 7-21 L CREATININE (BEAKER) (test code = 358) 0.68 mg/dL 0.57-1.25 GLUCOSE RANDOM (BEAKER) (test code = 652) 112 mg/dL 70-105 H CALCIUM (BEAKER) (test code = 697) 9.1 mg/dL 8.4-10.2 AST (SGOT) (BEAKER) (test code = 353) 56 U/L 5-34 H ALT (SGPT) (BEAKER) (test code = 347) 177 U/L 6-55 H EGFR (BEAKER) (test code = 1092) 102 mL/min/1.73 sq m ESTIMATED GFR IS NOT ACCURATE CREATININE CLEARANCE IN PREDICTING GLOMERULAR FILTRATION RATE. ESTIMATED GFR IS NOT APPLICABLE FOR DIALYSIS PATIENTS. Branch Logistics Supervisor SHAGUFTA BARTLETT WCBC W/PLT COUNT & AUTO [id number] 05:17:00* Test Item Value Reference Range Interpretation Comme nts WHITE BLOOD CELL COUNT (BEAK ER) (test code = 775) 8.9 K/ L 3.5-10.5 RED BLOOD CELL COUNT (BEAKER ) (test code = 761) 4.16 M/ L 3.93-5.22 HEMOGLOBIN (BEAKER) (test co de = 410) 13.7 GM/DL 11.2-15.7 HEMATOCRIT (BEAKER) (test co de = 411) 40.6 % 34.1-44.9 MEAN CORPUSCULAR VOLUME (OVIDIO KER) (test code = 753) 97.6 fL 79.4-94.8 H MEAN CORPUSCULAR HEMOGLOBIN (BEAKER) (test code = 751) 32.9 pg 25.6-32.2 H MEAN CORPUSCULAR HEMOGLOBIN CONC (BEAKER) (test code = 752) 33.7 GM/DL 32.2-35.5 RED CELL DISTRIBUTION WIDTH (BEAKER) (test code = 412) 11.8 % 11.7-14.4 PLATELET COUNT (BEAKER) (roslyn t code = 756) 329 K/CU MM 150-450 MEAN PLATELET VOLUME (BEAKER ) (test code = 754) 10.9 fL 9.4-12.3 NUCLEATED RED BLOOD CELLS (BEAKER) (test code = 413) 0 /100 WBC 0-0 NEUTROPHILS RELATIVE PERCENT (BEAKER) (test code = 429) 72 % LYMPHOCYTES RELATIVE PERCENT (BEAKER) (test code = 430) 21 % MONOCYTES RELATIVE PERCENT (BEAKER) (test code = 431) 7 % EOSINOPHILS RELATIVE PERCENT (BEAKER) (test code = 432) 0 % BASOPHILS RELATIVE PERCENT (BEAKER) (test code = 437) 0 % NEUTROPHILS ABSOLUTE COUNT (BEAKER) (test code = 670) 6.40 K/ L 1.56-6.13 H LYMPHOCYTES ABSOLUTE COUNT (BEAKER) (test code = 414) 1.84 K/ L 1.18-3.74 MONOCYTES ABSOLUTE COUNT (BE JAJA) (test code = 415) 0.64 K/ L 0.24-0.36 H EOSINOPHILS ABSOLUTE COUNT (BEAKER) (test code = 416) 0.02 K/ L 0.04-0.36 L BASOPHILS ABSOLUTE COUNT (BE JAJA) (test code = 417) 0.01 K/ L 0.01-0.08 IMMATURE GRANULOCYTES-RELATI VE PERCENT (BEAKER) (test code = 2801) 0 % 0-1 SCREEN, [id number] 09:41:00* Test Item Value Reference Range Interpretation Comme nts TEST URINE (BEAKER ) (test code = 583) Negative COMPREHENSIVE METABOLIC [id number] 06:04:00* Test Item Value Reference Range Interpretation Comme nts TOTAL PROTEIN (BEAKER) (test code = 770) 6.1 gm/dL 6.0-8.3 ALBUMIN (BEAKER) (test code = 1145) 3.6 g/dL 3.5-5.0 ALKALINE PHOSPHATASE (BEAKER) (test code = 346) 163 U/L 40-150 H BILIRUBIN TOTAL (BEAKER) (test code = 377) 2.0 mg/dL 0.2-1.2 H SODIUM (BEAKER) (test code = 381) 138 meq/L 136-145 POTASSIUM (BEAKER) (test code = 379) 3.4 meq/L 3.5-5.1 L CHLORIDE (BEAKER) (test code = 382) 108 meq/L 98-107 H CO2 (BEAKER) (test code = 355) 24 meq/L 22-29 BLOOD UREA NITROGEN (BEAKER) (test code = 354) 4 mg/dL 7-21 L CREATININE (BEAKER) (test code = 358) 0.65 mg/dL 0.57-1.25 GLUCOSE RANDOM (BEAKER) (test code = 652) 131 mg/dL 70-105 H CALCIUM (BEAKER) (test code = 697) 8.3 mg/dL 8.4-10.2 L AST (SGOT) (BEAKER) (test code = 353) 90 U/L 5-34 H ALT (SGPT) (BEAKER) (test code = 347) 206 U/L 6-55 H EGFR (BEAKER) (test code = 1092) 108 mL/min/1.73 sq m ESTIMATED GFR IS NOT ACCURATE CREATININE CLEARANCE IN PREDICTING GLOMERULAR FILTRATION RATE. ESTIMATED GFR IS NOT APPLICABLE FOR DIALYSIS PATIENTS. Branch Logistics Supervisor ID Ladonna ANDREWS [id number] 06:03:00* Test Item Value Reference Range Interpretation Comme nts MAGNESIUM (BEAKER) (test cod e = 627) 1.8 mg/dL 1.6-2.6 Branch Logistics Supervisor ID Ladonna ANDREWS LCBC W/PLT COUNT & AUTO [id number] 05:14:00* Test Item Value Reference Range Interpretation Comme nts WHITE BLOOD CELL COUNT (BEAK ER) (test code = 775) 8.5 K/ L 3.5-10.5 RED BLOOD CELL COUNT (BEAKER ) (test code = 761) 3.77 M/ L 3.93-5.22 L HEMOGLOBIN (BEAKER) (test co de = 410) 12.8 GM/DL 11.2-15.7 HEMATOCRIT (BEAKER) (test co de = 411) 36.1 % 34.1-44.9 MEAN CORPUSCULAR VOLUME (OVIIDO KER) (test code = 753) 95.8 fL 79.4-94.8 H MEAN CORPUSCULAR HEMOGLOBIN (BEAKER) (test code = 751) 34.0 pg 25.6-32.2 H MEAN CORPUSCULAR HEMOGLOBIN CONC (BEAKER) (test code = 752) 35.5 GM/DL 32.2-35.5 RED CELL DISTRIBUTION WIDTH (BEAKER) (test code = 412) 11.7 % 11.7-14.4 PLATELET COUNT (BEAKER) (roslyn t code = 756) 275 K/CU MM 150-450 MEAN PLATELET VOLUME (BEAKER ) (test code = 754) 10.9 fL 9.4-12.3 NUCLEATED RED BLOOD CELLS (BEAKER) (test code = 413) 0 /100 WBC 0-0 NEUTROPHILS RELATIVE PERCENT (BEAKER) (test code = 429) 72 % LYMPHOCYTES RELATIVE PERCENT (BEAKER) (test code = 430) 20 % MONOCYTES RELATIVE PERCENT (BEAKER) (test code = 431) 6 % EOSINOPHILS RELATIVE PERCENT (BEAKER) (test code = 432) 2 % BASOPHILS RELATIVE PERCENT (BEAKER) (test code = 437) 0 % NEUTROPHILS ABSOLUTE COUNT (BEAKER) (test code = 670) 6.08 K/ L 1.56-6.13 LYMPHOCYTES ABSOLUTE COUNT (BEAKER) (test code = 414) 1.73 K/ L 1.18-3.74 MONOCYTES ABSOLUTE COUNT (BE JAJA) (test code = 415) 0.51 K/ L 0.24-0.36 H EOSINOPHILS ABSOLUTE COUNT (BEAKER) (test code = 416) 0.13 K/ L 0.04-0.36 BASOPHILS ABSOLUTE COUNT (BE JAJA) (test code = 417) 0.02 K/ L 0.01-0.08 IMMATURE GRANULOCYTES-RELATI VE PERCENT (BEAKER) (test code = 2801) 0 % 0-1 FL, [id number] 10:06:00Reason for exam:->ercpFINAL REPORT Fluoroscopy. History: Intraoperative. Findings: Radiologist was not present for the exam. Fluoroscopy was not performed by the undersigned. Please see operative report for details. Fluoroscopy Time: 380 secondsReference Air Kerma (Ka, r): 756 mGy. IMPRESSION:Intraoperative fluoroscopy. Please see operative report for details. Signed: David Fayeprut Verified Date/Time: 08/08/2019 10:06:59 Reading Location: [address] Ortho Consult Reading Room [id number] 06:25:00* Test Item Value Reference Range Interpretation Comme nts MAGNESIUM (BEAKER) (test cod e = 627) 1.8 mg/dL 1.6-2.6 Branch Logistics Supervisor ID - PIAYA LCOMPREHENSIVE METABOLIC [id number] 06:25:00* Test Item Value Reference Range Interpretation Comme nts TOTAL PROTEIN (BEAKER) (test code = 770) 6.4 gm/dL 6.0-8.3 ALBUMIN (BEAKER) (test code = 1145) 3.7 g/dL 3.5-5.0 ALKALINE PHOSPHATASE (BEAKER) (test code = 346) 197 U/L 40-150 H BILIRUBIN TOTAL (BEAKER) (test code = 377) 2.3 mg/dL 0.2-1.2 H SODIUM (BEAKER) (test code = 381) 140 meq/L 136-145 POTASSIUM (BEAKER) (test code = 379) 3.9 meq/L 3.5-5.1 CHLORIDE (BEAKER) (test code = 382) 109 meq/L 98-107 H CO2 (BEAKER) (test code = 355) 25 meq/L 22-29 BLOOD UREA NITROGEN (BEAKER) (test code = 354) 4 mg/dL 7-21 L CREATININE (BEAKER) (test code = 358) 0.69 mg/dL 0.57-1.25 GLUCOSE RANDOM (BEAKER) (test code = 652) 71 mg/dL 70-105 CALCIUM (BEAKER) (test code = 697) 8.9 mg/dL 8.4-10.2 AST (SGOT) (BEAKER) (test code = 353) 112 U/L 5-34 H ALT (SGPT) (BEAKER) (test code = 347) 243 U/L 6-55 H EGFR (BEAKER) (test code = 1092) 101 mL/min/1.73 sq m ESTIMATED GFR IS NOT ACCURATE CREATININE CLEARANCE IN PREDICTING GLOMERULAR FILTRATION RATE. ESTIMATED GFR IS NOT APPLICABLE FOR DIALYSIS PATIENTS. Branch Logistics Supervisor ID - PIAYA LCBC W/PLT COUNT & AUTO [id number] 05:58:00* Test Item Value Reference Range Interpretation Comme nts WHITE BLOOD CELL COUNT (BEAKER) (test code = 775) 5.7 K/ L 3.5-10.5 RED BLOOD CELL COUNT (BEAKER) (test code = 761) 3.82 M/ L 3.93-5.22 L HEMOGLOBIN (BEAKER) (test code = 410) 13.0 GM/DL 11.2-15.7 HEMATOCRIT (BEAKER) (test code = 411) 39.1 % 34.1-44.9 MEAN CORPUSCULAR VOLUME (BEAKER) (test code = 753) 102.4 fL 79.4-94.8 H Discordant MCV results compared to previous results; clinical correlation required. MEAN CORPUSCULAR HEMOGLOBIN (BEAKER) (test code = 751) 34.0 pg 25.6-32.2 H MEAN CORPUSCULAR HEMOGLOBIN CONC (BEAKER) (test code = 752) 33.2 GM/DL 32.2-35.5 RED CELL DISTRIBUTION WIDTH (BEAKER) (test code = 412) 12.0 % 11.7-14.4 PLATELET COUNT (BEAKER) (test code = 756) 271 K/CU MM 150-450 MEAN PLATELET VOLUME (BEAKER) (test code = 754) 10.9 fL 9.4-12.3 NUCLEATED RED BLOOD CELLS (BEAKER) (test code = 413) 0 /100 WBC 0-0 NEUTROPHILS RELATIVE PERCENT (BEAKER) (test code = 429) 41 % LYMPHOCYTES RELATIVE PERCENT (BEAKER) (test code = 430) 44 % MONOCYTES RELATIVE PERCENT (BEAKER) (test code = 431) 10 % EOSINOPHILS RELATIVE PERCENT (BEAKER) (test code = 432) 4 % BASOPHILS RELATIVE PERCENT (BEAKER) (test code = 437) 1 % NEUTROPHILS ABSOLUTE COUNT (BEAKER) (test code = 670) 2.34 K/ L 1.56-6.13 LYMPHOCYTES ABSOLUTE COUNT (BEAKER) (test code = 414) 2.49 K/ L 1.18-3.74 MONOCYTES ABSOLUTE COUNT (BEAKER) (test code = 415) 0.55 K/ L 0.24-0.36 H EOSINOPHILS ABSOLUTE COUNT (BEAKER) (test code = 416) 0.21 K/ L 0.04-0.36 BASOPHILS ABSOLUTE COUNT (BEAKER) (test code = 417) 0.05 K/ L 0.01-0.08 IMMATURE GRANULOCYTES-RELATIVE PERCENT (BEAKER) (test code = 2801) 0 % 0-1 MR, ABDOMEN, [id number] 11:00:00FINAL REPORT TECHNIQUE: MRI of the abdomen and MRCP WITHOUT intravenous contrast. 3-D volume reconstructions were obtained to evaluate the biliary ductal system. INDICATION: Choledocholithiasis. COMPARISON: None. FINDINGS: ABSENCE OF INTRAVENOUS CONTRAST DECREASES SENSITIVITY FOR DETECTION OF FOCAL LESIONS AND VASCULAR PATHOLOGY. LOWER THORAX: Unremarkable. LIVER: No hepatic signal abnormality. No focal hepatic lesions. BILIARY: The gallbladder contains a stone which measures 1 cm with mild gallbladder wall edema. In [...] solid mass lesions. PERITONEUM/RETROPERITONEUM: No free fluid.LYMPH NODES: No lymphadenopathy.VESSELS: Unremarkable. GI TRACT: No distention or wall thickening. BONESAND SOFT TISSUES: Unremarkable. 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 Signed: [facility] Verified Date/Time: 08/07/2019 11:00:16 Reading Location: [facility] C013Y CT Body Reading Room BILIRUBIN, [id number] 02:16:00* Test Item Value Reference Range Interpretation Comme nts BILIRUBIN DIRECT (BEAKER) (t est code = 706) 1.6 mg/dL 0.1-0.5 H Branch Logistics Supervisor ID - PIAYA LCOMPREHENSIVE METABOLIC [id number] 02:16:00* Test Item Value Reference Range Interpretation Comme nts TOTAL PROTEIN (BEAKER) (test code = 770) 6.1 gm/dL 6.0-8.3 ALBUMIN (BEAKER) (test code = 1145) 3.5 g/dL 3.5-5.0 ALKALINE PHOSPHATASE (BEAKER) (test code = 346) 225 U/L 40-150 H BILIRUBIN TOTAL (BEAKER) (test code = 377) 2.7 mg/dL 0.2-1.2 H SODIUM (BEAKER) (test code = 381) 137 meq/L 136-145 POTASSIUM (BEAKER) (test code = 379) 3.4 meq/L 3.5-5.1 L CHLORIDE (BEAKER) (test code = 382) 111 meq/L 98-107 H CO2 (BEAKER) (test code = 355) 18 meq/L 22-29 L BLOOD UREA NITROGEN (BEAKER) (test code = 354) 5 mg/dL 7-21 L CREATININE (BEAKER) (test code = 358) 0.63 mg/dL 0.57-1.25 GLUCOSE RANDOM (BEAKER) (test code = 652) 82 mg/dL 70-105 CALCIUM (BEAKER) (test code = 697) 7.9 mg/dL 8.4-10.2 L AST (SGOT) (BEAKER) (test code = 353) 134 U/L 5-34 H ALT (SGPT) (BEAKER) (test code = 347) 248 U/L 6-55 H EGFR (BEAKER) (test code = 1092) 112 mL/min/1.73 sq m ESTIMATED GFR IS NOT ACCURATE CREATININE CLEARANCE IN PREDICTING GLOMERULAR FILTRATION RATE. ESTIMATED GFR IS NOT APPLICABLE FOR DIALYSIS PATIENTS. Branch Logistics Supervisor ID Ladonna ANDREWS LSpecimen slightly ictericLACTIC ACID, [id number] 02:10:00* Test Item Value Reference Range Interpretation Comme nts LACTATE BLOOD VENOUS (2) (BEAKER) (test code = 2872) 0.75 mmol/L 0.50-2.20 Specimen slightl y hemolyzed Branch Logistics Supervisor ID - DARRYL LSpecimen slightly ictericPT/[id number] 02:06:00* Test Item Value Reference Range Interpretation Comme nts PROTIME (BEAKER) (test code = 759) 13.1 seconds 11.9-14.2 INR (BEAKER) (test code = 370) 1.0 <=5.9 PARTIAL THROMBOPLASTIN TIME (BEAKER) (test code = 760) 28.6 seconds 22.5-36.0 Effective 09/16/2018: PT Reference Range ChangeNew: 11.9-14.2 Previous: 11.7- 14.7RECOMMENDED COUMADIN/WARFARIN INR THERAPY RANGESSTANDARD DOSE: 2.0-3.0 Includes: PROPHYLAXIS for venous thrombosis, systemic embolization; TREATMENT for venous thrombosis and/or pulmonary embolus.HIGH RISK: Target INR is 2.5-3.5 for patients wiht mechanical heart valves.CBC W/PLT COUNT & AUTO DIFFERENTIAL 2019-08-07 01:59:00* Test Item Value Reference Range Interpretation Comme nts WHITE BLOOD CELL COUNT (BEAK ER) (test code = 775) 6.1 K/ L 3.5-10.5 RED BLOOD CELL COUNT (BEAKER ) (test code = 761) 3.69 M/ L 3.93-5.22 L HEMOGLOBIN (BEAKER) (test co de = 410) 12.5 GM/DL 11.2-15.7 HEMATOCRIT (BEAKER) (test co de = 411) 35.9 % 34.1-44.9 MEAN CORPUSCULAR VOLUME (OVIDIO KER) (test code = 753) 97.3 fL 79.4-94.8 H MEAN CORPUSCULAR HEMOGLOBIN (BEAKER) (test code = 751) 33.9 pg 25.6-32.2 H MEAN CORPUSCULAR HEMOGLOBIN CONC (BEAKER) (test code = 752) 34.8 GM/DL 32.2-35.5 RED CELL DISTRIBUTION WIDTH (BEAKER) (test code = 412) 11.9 % 11.7-14.4 PLATELET COUNT (BEAKER) (roslyn t code = 756) 245 K/CU MM 150-450 MEAN PLATELET VOLUME (BEAKER ) (test code = 754) 11.2 fL 9.4-12.3 NUCLEATED RED BLOOD CELLS (BEAKER) (test code = 413) 0 /100 WBC 0-0 NEUTROPHILS RELATIVE PERCENT (BEAKER) (test code = 429) 53 % LYMPHOCYTES RELATIVE PERCENT (BEAKER) (test code = 430) 34 % MONOCYTES RELATIVE PERCENT (BEAKER) (test code = 431) 10 % EOSINOPHILS RELATIVE PERCENT (BEAKER) (test code = 432) 3 % BASOPHILS RELATIVE PERCENT (BEAKER) (test code = 437) 1 % NEUTROPHILS ABSOLUTE COUNT (BEAKER) (test code = 670) 3.21 K/ L 1.56-6.13 LYMPHOCYTES ABSOLUTE COUNT (BEAKER) (test code = 414) 2.06 K/ L 1.18-3.74 MONOCYTES ABSOLUTE COUNT (BE JAJA) (test code = 415) 0.59 K/ L 0.24-0.36 H EOSINOPHILS ABSOLUTE COUNT (BEAKER) (test code = 416) 0.17 K/ L 0.04-0.36 BASOPHILS ABSOLUTE COUNT (BE JAJA) (test code = 417) 0.05 K/ L 0.01-0.08 IMMATURE GRANULOCYTES-RELATI VE PERCENT (BEAKER) (test code = 2801) 0 % 0-1
[2024-12-10 21:03] LABS: Influenza A Ag Negative; Influenza B Ag Negative; SARS-CoV-2 Antigen Rapid Res Negative (Negative)
--- NOTE | 2024-12-10 21:26 | EDPHYS ---
Physician Documentation [facility] Name: Amrita Matos Age: 34 yrs Sex: Female : 1990 Arrival Date: 12/10/2024 Time: 20:05 Bed IW1 Private MD: ED Physician Jey Buitrago HPI: 12/10 20:55 This 34 yrs old Female presents to ER via Ambulatory with complaints of Sore cp Throat. 20:55 The patient presents with sore throat. cp 20:55 The patient describes throat pain as constant. cp 20:55 Onset: The symptoms/episode began/occurred 4 day(s) ago. cp 20:55 Associated signs and symptoms: Pertinent positives: cough, diarrhea, earache, Pertinent cp negatives diarrhea, vomiting. 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 - Infectious Disease History:: Denies. - Social history:: Smoking status: Reported history of juuling and/or vaping. Patient uses street drugs, marijuana. ROS: 21:00 Constitutional: Negative for fever, poor PO intake, cp 21:00 Eyes: Negative for injury, pain, redness, and discharge, cp 21:00 ENT: Positive for ear pain, sore throat, Negative for drainage from ear(s), difficulty swallowing, difficulty handling secretions, 21:00 Respiratory: Positive for cough, Negative for shortness of breath, wheezing, 21:00 Abdomen/GI: Positive for diarrhea, Negative for vomiting, 21:00 Neuro: Negative for altered mental status, 21:00 All other systems are negative, Exam: 21:05 Constitutional: The patient appears in no acute distress, alert, awake, non-toxic, well cp developed, well nourished, 21:05 Head/Face: Normocephalic, atraumatic. cp 21:05 Eyes: Periorbital structures: appear normal, Conjunctiva: normal, no exudate, no injection, Sclera: no appreciated abnormality, Lids and lashes: appear normal, bilaterally, 21:05 ENT: External ear(s): are unremarkable, Ear canal(s): are normal, clear, TM's: dullness, bilaterally, Nose: is normal, Mouth: Lips: moist, Oral mucosa: moist, Posterior pharynx: Airway: no evidence of obstruction, patent, Tonsils: bilaterally enlarged, with erythema, Uvula: midline, erythema, that is moderate, 21:05 Neck: ROM/movement: Meningeal signs: are not present, nuchal rigidity, is not appreciated, 21:05 Chest/axilla: Inspection: normal, 21:05 Cardiovascular: Rate: tachycardic, Rhythm: regular, 21:05 Respiratory: the patient does not display signs of respiratory distress, Respirations: normal, no use of accessory muscles, no retractions, labored breathing, is not present, Breath sounds: are clear throughout, no decreased breath sounds, no stridor, no wheezing, 21:05 Abdomen/GI: Exam negative for discomfort, distension, guarding, Inspection: abdomen appears normal, 21:05 Skin: no rash present. Vital Signs: 20:37 BP 101 / 76; Pulse 100; Resp 18; Temp 98.8; Pulse Ox 99% ; Weight 58.97 kg; Height 5 vc1 ft. 6 in. ; Pain 10/10; 21:52 BP 104 / 72; Pulse 92; Resp 17; Temp 98.6; Pulse Ox 99% ; me1 20:37 Body Mass Index 20.98 (58.97 kg, 167.64 cm) vc1 20:37 Pain Scale: Adult vc1 MDM: 20:29 Medical Screening Exam initiated cp 21:00 Differential diagnosis: apthous stomatitis, group A strep tonsillitis, matthew's angina, cp mononucleosis, peritonsillar abscess pharyngitis, retropharyngeal abcess. 21:25 Data reviewed: vital signs, nurses notes, lab test result(s), and as a result, I will cp discharge patient. 21:25 I considered the following discharge prescriptions or medication management in the emergency department Medications were administered in the Emergency Department. See MAR. Counseling: I had a detailed discussion with the patient and/or guardian regarding the historical points, exam findings, and any diagnostic results supporting the discharge/admit diagnosis, lab results, to return to the emergency department if symptoms worsen or persist or if there are any questions or concerns that arise at home. 12/10 20:32 Order name: COVID-19 Ag + Flu A+B Ag cp 12/10 20:32 Order name: Group A Streptococcus Rapid cp 12/10 20:50 Order name: Throat Culture EDMS Administered Medications: 21:49 Drug: Amoxicillin-Clavulanate PO 875 mg PO once Route: PO; me1 21:49 Follow up: Response: No adverse reaction me1 Disposition: 12/11 03:27 Co-signature as Attending Physician, Jey Buitrago MD I agree with the assessment and [facility] plan of care. Disposition Summary: 12/10/24 21:25 Discharge Ordered Notes: Location: Home cp Problem: new cp Symptoms: have improved cp Condition: Stable cp Diagnosis - Cough cp Followup: cp - With: Private Physician - When: 2 - 3 days - Reason: Worsening of condition Discharge Instructions: - Discharge Summary Sheet cp - Sore Throat cp - Cough, Adult cp Forms: - Medication Reconciliation Form cp - Antibiotic Education cp - Prescription Opioid Use cp - Patient Portal Instructions cp - Leadership Thank You Letter cp Prescriptions: - Bromfed DM 2-30-10 mg/5 mL Oral syrup - administer 10 milliliter ORAL route every 8 hours As needed as needed for cold cp symptoms; 240 milliliter; Refills: 0, Product Selection Permitted - Amoxicillin 875 mg Oral Tablet - take 1 tablet ORAL route every 12 hours for 10 days; 20 tablet; Refills: 0, cp Product Selection Permitted Signatures: Dispatcher [employer] EDND Jey Buitrago MD MD cha Page, Corey, PA-C PA-C cp Liat Zapata RN RN vc1 Missy Stevens RN RN me1 Corrections: (The following items were deleted from the chart) 12/10 20:32 20:32 COVID-19 Ag + Flu A+B Ag+I.LAB.BRZ ordered. EDMS EDMS 20:32 20:32 Group A Streptococcus Rapid Sc+I.LAB.BRZ ordered. EDND EDMS 12/11 05:33 12/10 20:55 Associated signs and symptoms: Pertinent positives: cough, Pertinent cp negatives diarrhea, vomiting, cp
--- NOTE | 2024-12-10 21:26 | ER ---
Nurse's Notes [facility] Name: Amrita Matos Age: 34 yrs Sex: Female : 1990 Arrival Date: 12/10/2024 Time: 20:05 Bed IW1 Private MD: Diagnosis: Cough Presentation: 12/10 20:37 Chief complaint: Patient states: dry cough fever, ear pain, diarrhea times 4 days. vc1 Coronavirus screen: Client denies travel out of the [place] in the last 14 days. At this time, the client does not indicate any symptoms associated with coronavirus-19. Ebola Screen: Patient negative for fever greater than or equal to 101.5 degrees Fahrenheit, and additional compatible Ebola Virus Disease symptoms Patient denies exposure to infectious person. Patient denies travel to an Ebola-affected area in the 21 days before illness onset. No symptoms or risks identified at this time. Initial Sepsis Screen: Does the patient meet any 2 criteria? No. Patient's initial sepsis screen is negative. Does the patient have a suspected source of infection? No. Patient's initial sepsis screen is negative. Risk Assessment: Do you want to hurt yourself or someone else? Patient reports no desire to harm self or others. Onset of symptoms was December 06, 2024. 20:37 Method Of Arrival: Ambulatory vc1 20:37 Acuity: JUN 4 vc1 Triage Assessment: 20:44 General: Appears in no apparent distress. uncomfortable, ill, slender, well groomed, vc1 well developed, well nourished, Behavior is calm, cooperative, appropriate for age. Pain: Complains of pain in throat Pain does not radiate. Pain currently is 10 out of 10 on a pain scale. EENT: Throat is reddened Reports pain when swallowing Pain is 10 out of 10 on a pain scale. Neuro: Level of Consciousness is awake, alert, obeys commands, Oriented to person, place, time, situation, Appropriate for age. Cardiovascular: Heart tones S1 S2 present Capillary refill < 3 seconds Patient's skin is warm and dry. Respiratory: Airway is patent Respiratory effort is even, unlabored, Respiratory pattern is regular, symmetrical, Breath sounds are clear bilaterally. GI: No deficits noted. No signs and/or symptoms were reported involving the gastrointestinal system. : No deficits noted. No signs and/or symptoms were reported regarding the genitourinary system. Derm: Skin is intact, is healthy with good turgor, Skin is dry, Skin is normal, Skin temperature is warm. Musculoskeletal: Circulation, motion, and sensation intact. Range of motion: intact in all extremities. 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 - Infectious Disease History:: Denies. - Social history:: Smoking status: Reported history of juuling and/or vaping. Patient uses street drugs, marijuana. Screenin:42 [facility] ED Fall Risk Assessment (Adult) History of falling in the last 3 months, vc1 including since admission No falls in past 3 months (0 pts) Confusion or Disorientation No (0 pts) Intoxicated or Sedated No (0 pts) Impaired Gait No (0 pts) Mobility Assist Device Used No (0 pt) Altered Elimination No (0 pt) Score/Fall Risk Level 0 - 2 = Low Risk Oriented to surroundings, Maintained a safe environment, Educated pt \T\ family on fall prevention, incl call for assistance when getting out of bed, Assessed \T\ reinforced patient's understanding of fall precautions, Hourly rounding (assess needs \T\ fall precautionary measures) done. Abuse screen: Denies threats or abuse. Nutritional screening: No deficits noted. Tuberculosis screening: No symptoms or risk factors identified. Assessment: 21:49 General: Appears ill, slender, well groomed, well developed, well nourished, Behavior me1 is calm, cooperative, appropriate for age, Reports dry cough fever, ear pain, diarrhea times 4 days. Pain: Complains of pain in throat Pain does not radiate. Pain currently is 10 out of 10 on a pain scale. Quality of pain is described as burning, sharp, Pain began 4 days ago Is continuous. Neuro: Level of Consciousness is awake, alert, obeys commands, Oriented to person, place, time, situation, Appropriate for age. Cardiovascular: Patient's skin is warm and dry. Respiratory: Reports cough that is dry, Airway is patent Respiratory effort is even, unlabored, Respiratory pattern is regular, symmetrical. GI: Abdomen is flat, non-distended, Bowel sounds present X 4 quads. Reports diarrhea, since 4 days ago. : No signs and/or symptoms were reported regarding the genitourinary system. EENT: Reports pain in left ear and right ear when swallowing. Derm: Skin is intact, is healthy with good turgor, Skin is normal. Musculoskeletal: No signs and/or symptoms reported regarding the musculoskeletal system. Circulation, motion, and sensation intact. Range of motion: intact in all extremities. Vital Signs: 20:37 BP 101 / 76; Pulse 100; Resp 18; Temp 98.8; Pulse Ox 99% ; Weight 58.97 kg; Height 5 vc1 ft. 6 in. ; Pain 10/10; 21:52 BP 104 / 72; Pulse 92; Resp 17; Temp 98.6; Pulse Ox 99% ; me1 20:37 Body Mass Index 20.98 (58.97 kg, 167.64 cm) vc1 20:37 Pain Scale: Adult vc1 ED Course: 20:07 Patient arrived in ED. [id number] 20:13 Jey Dave PA-C is PHCP. cp 20:13 Jey Buitrago MD is Attending Physician. cp 20:41 Triage completed. vc1 20:42 Arm band placed on right wrist. vc1 20:43 Patient has correct armband on for positive identification. Provided Education on: Plan vc1 of care. 20:45 Group A Streptococcus Rapid Sent. vc1 20:46 COVID-19 Ag + Flu A+B Ag Sent. vc1 21:49 No provider procedures requiring assistance completed. Patient did not have IV access me1 during this emergency room visit. Administered Medications: 21:49 Drug: Amoxicillin-Clavulanate PO 875 mg PO once Route: PO; me1 21:49 Follow up: Response: No adverse reaction me1 Medication: 20:43 VIS not applicable for this client. vc1 Outcome: 21:25 Discharge ordered by . cp 21:52 Discharged to home ambulatory, with family, me1 21:52 Condition: stable 21:52 Discharge instructions given to patient, family, Instructed on discharge instructions, follow up and referral plans. medication usage, Demonstrated understanding of instructions, follow-up care, medications, Prescriptions given X 2, 21:53 Patient left the ED. me1 Signatures: Jey Dave PA-C PA-C cp Jeffries, Jennifer [email or web address] Liat Zapata RN RN vc1 Missy Stevens RN RN me1 Corrections: (The following items were deleted from the chart) 21:49 20:37 Chief complaint: Patient states: dry cough fever, ear pain, diarrhea times 4 days me1 vc1
[2024-12-10] MEDS ORDERED: AMOX/K CLAV 875 MG TAB ONE (21:47)
[2024-12-10 22:00] VITALS: O2SAT 99
[2024-12-10 22:04] VITALS: BP 104/72; TEMP 98.6
== END 2024-12-10 21:53 | disposition home or self-care (01) ==
LOC: ER 20:05
DX: R05.9 Cough, unspecified (principal); Z11.52 Encounter for screening for COVID-19
CPT/HCPCS: 36415; 87070; 87428; 99284